=== PATIENT | female | born 1930 | race Two or more races ===

== ENCOUNTER 2019-07-13 11:39 | Inpatient (IN) | payer OTHER ==
[~2019-07-13] VITALS: Ht 152.4 cm; Wt 40.0 kg
[2019-07-13] VITALS (32 sets, daily range): BP systolic 74–122; BP diastolic 39–67
[2019-07-13] MEDS ORDERED: SUCCINYLCHOLINE CHLORIDE 20 MG/ML 10ML VIAL IV ONE (11:43)
[2019-07-13] MEDS ORDERED: ETOMIDATE (2MG/ML) 20ML VIAL IV ONE (11:43)
[2019-07-13] MEDS ORDERED: MIDAZOLAM DRIP 50 mg/50mL 50 ML IV ONE (11:45)
[2019-07-13] MEDS ORDERED: NOREPINEPHRINE 8 MG/250ML KIT 250 ML IV ONE (11:56)
[2019-07-13] MEDS ORDERED: SODIUM CHLORIDE 0.9% 500 ML IVB ONE (12:07)
[2019-07-13 12:50] LABS: Basophils # (auto) 0.1 uL; Basophils % (auto) 0.9 % (0.0-2.0); Eosinophils # (auto) 0.1 uL; Eosinophils % (auto) 1.7 % (0.0-7.0); Hematocrit 32.5 % (36.0-46.0); Hemoglobin 10.6 g/dL (12.2-16.2); Lymphocytes % (auto) 50.3 % (10.0-50.0); Mean Corpuscular Hgb Conc. 32.8 g/dL (32.0-36.0); Mean Corpuscular Volume 97.6 fL (80.0-100.0); Monocytes # (auto) 0.5 uL; Monocytes % (auto) 7.8 % (0.0-12.0); Neutrophils # (auto) 2.4 uL; Neutrophils % (auto) 39.3 % (37.0-80.0); Nucleated Red Blood Cells % 0.1 %; Platelet Count (auto) 144 10^3/uL (140-450); Red Blood Cells 3.32 10^6/uL (4.0-5.20); Red Cell Distribution Width 13.5 % (11.8-14.3); White Blood Cell 6.1 10^3/uL (4.4-10.8)
[2019-07-13 13:04] LABS: INR 1.09 (0.9-1.15); Partial Thromboplastin Time 24.8 sec (23.64-32.05)
[2019-07-13 13:18] LABS: Albumin 2.8 g/dL (3.4-5.0); Calcium 7.8 mg/dL (8.5-10.1); Potassium 3.4 mmol/L (3.5-5.1); Salicylate < 1.7 mg/dL (2.8-20.0)
[2019-07-13 13:21] LABS: BUN/Creatinine Ratio 11.8; Bilirubin, Total 0.5 mg/dL (0.2-1.0); Total Protein 5.8 g/dL (6.4-8.2)
[2019-07-13 13:26] LABS: Blood Alcohol < 3.0 mg/dL (0-5); Magnesium 1.7 mg/dL (1.6-2.6)
--- NOTE | 2019-07-13 13:45 | NUR ---
Respiratory note: INCREASED RR TO 18 PER MODEL AND MOLD MAKER PLASTER R. SALBINO.
--- NOTE | 2019-07-13 14:22 | NUR ---
Respiratory note: PT TRANSPORTED TO CT WITH AMBUBAG AND HOOKED UP TO CT VENT. PT BAGGED TO ER ROOM [address] AND PLACED BACK ON DOCTORS ORDERED SETTINGS. WILL CONTINUE TO MONITOR.
[2019-07-13] MEDS ORDERED: SODIUM CHLORIDE 0.9% 1,000 ML IV ONE (14:30)
[2019-07-13] MEDS ORDERED: NITROGLYCERIN 0.4 MG SL TAB SL PRN (15:45)
[2019-07-13] MEDS ORDERED: ONDANSETRON HCL 4 MG/2 ML VIAL IV PRN (15:45)
[2019-07-13] MEDS ORDERED: MORPHINE SULF INJ 2 MG/ML SYRINGE 1ML IV PRN (15:45)
[2019-07-13 15:51] LABS: Urine Bacteria NONE SEEN /hpf (None Seen); Urine Blood TRACE /uL (Negative); Urine Hyaline Cast FEW /lpf (0 - 2); Urine Mucus FEW (None Seen); Urine Specific Gravity 1.014 (1.001-1.035); Urine WBC 1 /hpf (0 - 5)
[2019-07-13 15:59] LABS: Alcohol, Urine < 3.0 mg/dL (0-5); Amphetamine Screen, Urine NEGATIVE (NEGATIVE); Barbiturate Scree,Urine NEGATIVE (NEGATIVE); Benzodiazephine Screen, Urine NEGATIVE (NEGATIVE); Cannabinoid Screen, Urine NEGATIVE (NEGATIVE); Cocaine Screen, Urine NEGATIVE (NEGATIVE); Opiate Scree,Urine NEGATIVE (NEGATIVE); Phencyclidine Screen, Urine NEGATIVE (NEGATIVE)
[2019-07-13] MEDS: MIDAZOLAM DRIP 50 mg/50mL 50 ML IV SCH (16:28)
[2019-07-13] MEDS: SODIUM CHLORIDE 0.9% 1,000 ML IV SCH (16:30)
[2019-07-13] MEDS: NOREPINEPHRINE 8 MG/250ML KIT 250 ML IV SCH ×2 (16:31→22:00)
[2019-07-13 17:10] LABS: Lactic Acid w/Reflex 2.1 mmol/L (0.4-2.0)
--- NOTE | 2019-07-13 17:30 | NUR ---
Admit to ICU from ER on vent ALEXANDRO,JAYLAN admitted to ICU via gurney on athletic monitor, intubated and being bagged by Respiratory Therapist. Patient transferred to bed, connected to mechanical ventilator by therapist, ROSALINE at bedside. Patient connected to ICU monitoring Sinus rhythm 70's with PVC's, weighed by [facility], oriented to Beth Mcgregor primary RN, unit, ventilator and sedation. Patient tolerating ventilation at this time. Physical assessment performed. Berumen catheter preset, patent, and secure below bladder. Flexi-seal intact and patent. Vitals stable. See skin/wound assessment. Bed locked in lowest position, alarms in place. Will continue to monitor.
--- NOTE | 2019-07-13 17:50 | NUR ---
WARMING MEASURES Unable to obtain temperature oral or axillary. Placed rectal temp, 90.7. Luis hugger placed, warm blankets and heating light on. Will continue to monitor rewarming period.
--- NOTE | 2019-07-13 18:10 | NUR ---
URINE Urine sample sent to lab.
[2019-07-13] MEDS: IPRATROPIUM BROM 0.5 MG/2.5ML INH SOL NEB SCH ×2 (18:20→18:49)
[2019-07-13] MEDS: ALBUTEROL SULF 2.5 MG/0.5ML(0.5%) NEB SOLN NEB SCH ×2 (18:20→18:48)
--- NOTE | 2019-07-13 18:30 | NUR ---
FAMILY AT BEDSIDE Patient daughters at bedside. Family updated on plan of care. All questions and concerns addressed.
[2019-07-13] MEDS: BUDESONIDE (INHALATION) 0.5 MG/2 ML NEB NEB SCH (18:49)
--- NOTE | 2019-07-13 19:00 | NUR ---
opening note ASSUMED CARE OF PATIENT AT THIS TIME. REPORT RECEIVED FROM DAY SHIFT RN. POC REVIEWED. HEAD TO TOE ASSESSMENT COMPLETE, SEE INTERVENTION SPREADSHEET FOR COMPLETE DETAILS. RECEIVED PT INTUBATED. NO SEDATION AT THIS TIME. RECEIVED PT AT 92 DEGREES RECTAL TEMP WITH SATURNINO HUGGER WARMING IN PLACE. RECEIVED PT ON 13 MCG OF LEVO. NS AT 100. IV SITES BENIGN. ALEJANDRO CATHETER DRAINING TO GRAVITY. OGT CLAMPED. WILL MONITOR PT CAREFULLY. Addendum: 07/14/19 at 0334 by DOC VITAL RN received pt with flexiseal in place. no output noted
[2019-07-13] MEDS ORDERED: CITA10TA59 PO (19:02)
--- NOTE | 2019-07-13 19:04 | NUR ---
REPORT Report given to Rj SAINI, care endorsed.
[2019-07-13 20:25] LABS: Urine Bacteria NONE SEEN /hpf (None Seen); Urine Blood Negative /uL (Negative); Urine Hyaline Cast FEW /lpf (0 - 2); Urine Mucus FEW (None Seen); Urine WBC 1 /hpf (0 - 5)
--- NOTE | 2019-07-13 21:02 | NUR ---
pt not on sedation at this time Addendum: 07/13/19 at 2102 by DOC VITAL RN Amended: Links added.
[2019-07-13] MEDS: FAMOTIDINE (10MG/ML) 2ML VL IV SCH (21:37)
--- NOTE | 2019-07-13 21:51 | NUR ---
GRETCHEN TO NUNU.
--- NOTE | 2019-07-13 22:47 | NUR ---
core temp, 98.6. Luis hugger warming on standby at this time.
--- NOTE | 2019-07-13 23:09 | NUR ---
v-tach pt had run of v-tach. Labs sent to check electrolytes. Strip printed and placed in pt chart.
[2019-07-13] MEDS ORDERED: MAGNESIUM SULFATE 1GM/100ML 100 ML IV ONE (23:42)
[2019-07-13 23:51] LABS: BUN/Creatinine Ratio 13.9; Calcium 7.7 mg/dL (8.5-10.1); Magnesium 1.6 mg/dL (1.6-2.6); Potassium 3.5 mmol/L (3.5-5.1)
--- NOTE | 2019-07-13 23:54 | NUR ---
Pt having frequent episodes of V-tach, episodes of torsades. Hospitalist paged at this time.
[2019-07-14] VITALS (69 sets, daily range): BP systolic 80–140; BP diastolic 40–67
--- NOTE | 2019-07-14 | NUR ---
ekg done, electrolyte panel complete.
[2019-07-14] MEDS ORDERED: MAGNESIUM SULFATE 1GM/100ML 100 ML IV ONE (00:09)
--- NOTE | 2019-07-14 00:12 | NUR ---
Hospitalist paged again at this time.
[2019-07-14] MEDS: IPRATROPIUM BROM 0.5 MG/2.5ML INH SOL NEB SCH ×4 (00:14→18:47)
[2019-07-14] MEDS: ALBUTEROL SULF 2.5 MG/0.5ML(0.5%) NEB SOLN NEB SCH ×4 (00:15→18:47)
[2019-07-14] MEDS ORDERED: AMIODARONE HCL (50 MG/ ML) 3 ML VIAL IV ONE (00:19)
[2019-07-14] MEDS ORDERED: AMIODARONE HCL 900 MG IV ONE (00:20)
[2019-07-14] MEDS ORDERED: NOREPINEPHRINE 8 MG/250ML KIT 250 ML IV ONE (00:21)
--- NOTE | 2019-07-14 00:26 | NUR ---
Hospitalist returned page, orders received fro 2 gm Mag and Amio protocol. Will carry out order.
[2019-07-14] MEDS ORDERED: AMIODARONE HCL 900 MG in DEXTROSE 500 ML IV SCH (01:00)
[2019-07-14] MEDS ORDERED: AMIODARONE HCL 150 MG in D5W 5% 100 ML IV ONE (01:00)
[2019-07-14] MEDS: MAGNESIUM SULFATE 1GM/100ML 100 ML IV SCH ×4 (01:00→14:13)
--- NOTE | 2019-07-14 01:39 | NUR ---
Amio bolus given, 33.33 mls dose withheld at this time. Pt in Sinus rhythm with bradycardia 49-50.
[2019-07-14] MEDS: SODIUM CHLORIDE 0.9% 1,000 ML IV SCH ×2 (02:30→16:07)
[2019-07-14 04:43] LABS: Basophils # (auto) 0 uL; Basophils % (auto) 0.3 % (0.0-2.0); Eosinophils # (auto) 0 uL; Eosinophils % (auto) 0.5 % (0.0-7.0); Hematocrit 32.1 % (36.0-46.0); Lymphocytes # (auto) 1.7 uL; Lymphocytes % (auto) 17.5 % (10.0-50.0); Mean Corpuscular Hemoglobin 32.4 pg (28.0-32.0); Mean Corpuscular Hgb Conc. 34.4 g/dL (32.0-36.0); Mean Corpuscular Volume 94.1 fL (80.0-100.0); Monocytes # (auto) 0.9 uL; Neutrophils # (auto) 7.2 uL; Neutrophils % (auto) 72.7 % (37.0-80.0); Platelet Count (auto) 162 10^3/uL (140-450); Red Blood Cells 3.41 10^6/uL (4.0-5.20); Red Cell Distribution Width 13.2 % (11.8-14.3); White Blood Cell 9.9 10^3/uL (4.4-10.8)
[2019-07-14 04:51] LABS: Calcium 7.9 mg/dL (8.5-10.1); Potassium 3.1 mmol/L (3.5-5.1)
[2019-07-14 04:53] LABS: BUN/Creatinine Ratio 11.4
--- NOTE | 2019-07-14 06:41 | NUR ---
rhythm change approx 0500 pt began dipping hr to 30's. BP remained stable on 15 mcg of levo. Pt externally paced at this time. Hospitalist page.. Orders received to start pt on dopamine gtt. Addendum: 07/14/19 at 0647 by DOC VITAL RN dopamine for hr to keep >60
[2019-07-14] MEDS: DOPamine 1600MCG/ML D5W 250 ML IV SCH (06:43)
[2019-07-14] MEDS ORDERED: DOPamine 1600MCG/ML D5W 250 ML IV ONE (06:52)
--- NOTE | 2019-07-14 07:06 | NUR ---
Order received from hospitalist to give 20 meq k iv. Will carry out order
[2019-07-14] MEDS ORDERED: POTASSIUM CHL 20MEQ/100ML 100 ML IV ONE ×2 (07:15→11:45)
[2019-07-14] MEDS: BUDESONIDE (INHALATION) 0.5 MG/2 ML NEB NEB SCH ×2 (07:35→18:47)
[2019-07-14] MEDS: FAMOTIDINE (10MG/ML) 2ML VL IV SCH (10:02)
[2019-07-14] MEDS: ENOXAPARIN SOD 30 MG/0.3 ML SYRINGE SC SCH (10:03)
[2019-07-14] MEDS: AMIODARONE HCL 900 MG in DEXTROSE 500 ML IV SCH (11:12)
--- NOTE | 2019-07-14 11:43 | NUR ---
DR ELIZALDE AT BEDSIDE, DR EXAMINED PATIENT AND GAVE NEW ORDERS. DR AWARE PROLONGED QTI, BRADYCARDIA, LEVOPHED/DOPAMINE DRIPS. SPOKE WITH DTR.
[2019-07-14] MEDS ORDERED: ISOPROTERENOL HCL INJECTION 1 MG in D5W 5% 250 ML IV SCH (12:19)
--- NOTE | 2019-07-14 12:25 | NUR ---
DR MOTA AT BEDSIDE, EXAMINED PATIENT AND SPOKE WITH FAMILY. NEW ORDERS RECEIVED FOR ISUPREL DRIP 2-5 MCGM/MIN TO KEEP HR 80-100. DR STATED TO START ISUPREL RATHER THAN GOING UP ON DOPAMINE DRIP. DR STATED TO HAVE ECHO COMPLETED SOON AND SUPERVISOR STRIPPING AWARE STATED AFTER LUNCH ECHO WILL BE COMPLETED. DR AWARE OF PROLONGED QTI AND TORSADES ON WEB ANALYTICS DEVELOPER. DR GAVE ORDER FOR 2 GM MAGNESIUM IV RIDER AND TO CHECK MAG LEVEL LATER AFTER. AWARE POTASSIUM REPLACED WITH 20 MEQ IV AND RN WILL GIVE ANOTHER 20 MEQ IV NOW PER DR ELIZALDE ORDER.
--- NOTE | 2019-07-14 12:37 | NUR ---
Nutrition Consult/Assessment Notes please see attached link for complete assessment Est. Needs BW [id number] kcal (25-30 kcal/kgBW), 49-58 gms pro (1.0-1.2 gms/kgBW). Will continue to monitor pertinent labs and reassess nutrient need prn Addendum: 07/14/19 at [address] Amended: Links added.
[2019-07-14] MEDS: MIDAZOLAM DRIP 50 mg/50mL 50 ML IV SCH (12:38)
--- NOTE | 2019-07-14 14:00 | NUR ---
DOPAMINE DRIP INCREASED TO 3 MCG/KG/MIN TO KEEP HR 80-[address] BANKO ORDER DUE TO NO ISUPREL DRIP AVAILABLE
--- NOTE | 2019-07-14 14:20 | NUR ---
DECREASED DOPAMINE BY 1 MCG/KG/MIN DUE HR 110-112 WITH FREQUENT PVCS, DOPAMINE CURRENTLY AT 2 MCG/KG/MIN
--- NOTE | 2019-07-14 14:50 | NUR ---
WOUND CARE NOTE: Wound care consult received from nursing. Patient is a 88 yo female admitted for acute respiratory failure. Patient's only charted medical history includes depression. Patient is currently intubated and sedated. Discussed with bedside RNBenson. Patient has [id number] specialty bed ordered and is currently on regular ICU bed. Patient is too unstable at this time to transfer to specialty bed or turn for skin assessment. Per bedside Benson SAINI. Skin is intact. Sacrum is pink, blanching and intact. Last Alfonso score is 12. Wound care team to follow while Alfonso is <18 and intubated.
[2019-07-14] MEDS ORDERED: OXYB10TA14 PO (15:55)
[2019-07-14] MEDS ORDERED: ATOR20TA50 PO (15:55)
[2019-07-14] MEDS ORDERED: GABA300C10 PO (15:55)
[2019-07-14] MEDS ORDERED: MELA3TAB27 PO (15:55)
[2019-07-14] MEDS ORDERED: OME20T PO (15:55)
[2019-07-14] MEDS ORDERED: ATEN-60 PO (15:55)
[2019-07-14] MEDS ORDERED: GABA100C9 PO (15:55)
[2019-07-14] MEDS ORDERED: [UNRECOGNIZED DRUG - CODE] PO (15:55)
[2019-07-14] MEDS ORDERED: ALEN1TAB32 PO (15:55)
[2019-07-14] MEDS: NOREPINEPHRINE 8 MG/250ML KIT 250 ML IV SCH (16:08)
--- NOTE | 2019-07-14 18:00 | NUR ---
DOPAMINE AT 5 MCG/KG/MIN TO MAINTAIN HR 80-100 AND MAP ABOVE 90
--- NOTE | 2019-07-14 18:45 | NUR ---
SHANTANU PEARSON LABOR ARBITRATOR AT BEDSIDE PLACED ARTERIAL LINE TO RIGHT FEMORAL ARTERY AFTER CONSENT OBTAINED FROM DTTiffanie TIAN.
--- NOTE | 2019-07-14 19:00 | NUR ---
DR BOONE AT BEDSIDE NEW ORDER RECEIVED. AWARE OF INCREASED TONGUE SWELLING SINCE BEGINNING OF SHIFT
--- NOTE | 2019-07-14 19:00 | NUR ---
OPENING NOTE ASSUMED CARE OF PATIENT AT THIS TIME. REPORT RECEIVED FROM DAY SHIFT RN. POC REVIEWED. HEAD TO TOE ASSESSMENT COMPLETE, SEE INTERVENTION SPREADSHEET FOR COMPLETE DETAILS. RECEIVED PT ON VENTILATOR, NO SEDATION AT THIS TIME. RECEIVED PT ON 17 MCG OF LEVO, 6 MCG OF DOPAMINE. RECEIVED PT WITH ARTERIAL BP MONITORING AND RECTAL TEMP MONITORING. IV SITES BENIGN. RECEIVED PT WITH TONGUE SWELLING. VSS. ALEJANDRO CATHETER DRAINING TO GRAVITY. BED LOCKED AND IN LOWEST POSITION, SAFETY PRECAUTIONS IN PLACE. WILL MONITOR PT CAREFULLY.
[2019-07-14 19:15] LABS: Albumin 2.8 g/dL (3.4-5.0); BUN/Creatinine Ratio 9.1; Calcium 7.9 mg/dL (8.5-10.1); Potassium 4.1 mmol/L (3.5-5.1)
[2019-07-14 19:18] LABS: Bilirubin, Total 0.6 mg/dL (0.2-1.0); Total Protein 5.9 g/dL (6.4-8.2)
--- NOTE | 2019-07-14 21:05 | NUR ---
MARIPOSA FROM POISON CONTROL CALLED RECOMMEND CALCIUM REPLACEMENT, AND EPINEPHRINE OVER DOPAMINE. CONTINUE WITH SUPPORTIVE CARE. DO 12 LEAD EKG AND REPORT ANY ISSUES TO POISON CONTROL AT [phone]
--- NOTE | 2019-07-14 21:27 | NUR ---
PT NOT ON SEDATION AT THIS TIME Addendum: 07/14/19 at 2127 by DOC VITAL RN Amended: Links added.
[2019-07-14] MEDS: methylPREDNISolone SOD SUCC 40 MG/ML VL IV SCH (21:58)
[2019-07-15] VITALS (108 sets, daily range): BP systolic 88–151; BP diastolic 47–83
[2019-07-15] MEDS: ALBUTEROL SULF 2.5 MG/0.5ML(0.5%) NEB SOLN NEB SCH ×4 (00:42→18:35)
[2019-07-15] MEDS: IPRATROPIUM BROM 0.5 MG/2.5ML INH SOL NEB SCH ×4 (00:42→18:35)
[2019-07-15] MEDS: NOREPINEPHRINE 8 MG/250ML KIT 250 ML IV SCH (01:12)
--- NOTE | 2019-07-15 04:33 | NUR ---
EKG PER POISON CONTROL RECOMMENDATION COMPLETE PLACED IN PATIENT CHART.
--- NOTE | 2019-07-15 04:33 | NUR ---
FLEXISEAL REMOVED AT THIS TIME D/T NO OUTPUT OBSERVED. PT TOLERATED WELL.
[2019-07-15 04:35] LABS: Hemoglobin 11.6 g/dL (12.2-16.2); Mean Corpuscular Hemoglobin 31.6 pg (28.0-32.0); Mean Corpuscular Hgb Conc. 33.3 g/dL (32.0-36.0); Mean Corpuscular Volume 95.1 fL (80.0-100.0); Platelet Count (auto) 169 10^3/uL (140-450); Red Blood Cells 3.68 10^6/uL (4.0-5.20); Red Cell Distribution Width 13.4 % (11.8-14.3); White Blood Cell 14.6 10^3/uL (4.4-10.8)
[2019-07-15 04:40] LABS: Basophils % (manual) 0 (0.0-2.0); Blast Cells 0; Eosinophils % (manual) 0 (0-7); Lymphocytes % (manual) 0 (10.0-50.0); Metamyelocytes % 0; Monocytes % (manual) 0 (0-12); Myelocytes % 0; Promyelocytes % 0; Reactive Lymphocytes 0
[2019-07-15 04:47] LABS: BUN/Creatinine Ratio 9.3; Calcium 7.9 mg/dL (8.5-10.1); Magnesium 2.6 mg/dL (1.6-2.6); Potassium 3.9 mmol/L (3.5-5.1)
--- NOTE | 2019-07-15 05:16 | NUR ---
PT TRANSFERRED TO SPECIALTY BED WITH NO INCIDENT. PT TOLERATED WELL.
[2019-07-15] MEDS: methylPREDNISolone SOD SUCC 40 MG/ML VL IV SCH ×3 (05:52→21:48)
[2019-07-15] MEDS: SODIUM CHLORIDE 0.9% 1,000 ML IV SCH ×3 (05:52→20:00)
[2019-07-15] MEDS: BUDESONIDE (INHALATION) 0.5 MG/2 ML NEB NEB SCH ×2 (06:11→18:35)
[2019-07-15 06:52] LABS: Band Neutrophils % (manual) 4
[2019-07-15] MEDS: AMIODARONE HCL 900 MG in DEXTROSE 500 ML IV SCH (07:00)
--- NOTE | 2019-07-15 07:15 | NUR ---
SHIFT OPENING NOTE REPORT RECEIVED FROM PROJECT MANAGEMENT SPECIALIST NURSE. PT INTUBATED, RESPIRATIONS EVEN AND UNLABORED. NO SIGNS OF ACUTE DISTRESS. BED IN LOWEST POSITION. WILL CONTINUE TO MONITOR.
--- NOTE | 2019-07-15 08:05 | NUR ---
TEMPERATURE ON ASSESSMENT, PT TEMP 96.8. TURNED ON OVERHEAD HEAT LAMP AND APPLIED BEAR HUGGER. WILL CONTINUE TO MONITOR.
[2019-07-15] MEDS: DOPamine 1600MCG/ML D5W 250 ML IV SCH ×2 (08:38→21:47)
--- NOTE | 2019-07-15 09:15 | NUR ---
FAMILY AT BEDSIDE PTS TWO DAUGHTERS AT BEDSIDE. UPDATED FAMILY ON PT CONDITION AND PLAN OF CARE. ALL QUESTIONS AND CONCERNS ADDRESSED.
--- NOTE | 2019-07-15 10:12 | NUR ---
MD PAGED DR BOONE UPDATED VIA TELEPHONE WITH ABG RESULTS AND PATIENT STATUS. NO NEW ORDERS AT THIS TIME. PER MD AWAITING NEURO IMPROVEMENT BEFORE EXTUBATION.
[2019-07-15] MEDS: FAMOTIDINE (10MG/ML) 2ML VL IV SCH (10:31)
[2019-07-15] MEDS: ENOXAPARIN SOD 30 MG/0.3 ML SYRINGE SC SCH (10:32)
--- NOTE | 2019-07-15 10:52 | NUR ---
AT BEDSIDE DR. RAY AT BEDSIDE TO ASSESS PATIENT AND DISCUSS PLAN OF CARE WITH FAMILY. ALL ORDERS NOTED IN CHART.
--- NOTE | 2019-07-15 11:47 | NUR ---
POISON CONTROL CALLED POISON CONTROL UPDATED ON PATIENT STATUS. NO NEW RECOMMENDATIONS GIVEN AT THIS TIME.
[2019-07-15] MEDS: MIDAZOLAM DRIP 50 mg/50mL 50 ML IV SCH (12:38)
--- NOTE | 2019-07-15 13:51 | NUR ---
assessment Patient is a 88 year old female who is on a vent. I called and left a message for patients daughter Pratima yesterday and she returned my call this morning and left me a message. I tried to call Pratima back with no answer. I have left another message for Pratima to return my call. Waiting senior controller back now. Addendum: 07/15/19 at 1353 by Pratibha LONG Amended: Links added.
--- NOTE | 2019-07-15 14:00 | NUR ---
TEMPERATURE PT TEMPERATURE NOW AT 98.6. TURNED OFF BEAR HUGGER AND OVERHEAD HEAT LAMP. WILL CONTINUE TO MONITOR.
[2019-07-15] MEDS: Jevity 1.2 Cal/Fiber 1 Liter GT SCH (17:20)
--- NOTE | 2019-07-15 17:20 | NUR ---
TUBE FEEDINGS TUBE FEEDING INITIATED. POSITIVE OG TUBE PLACEMENT. JEVITY 1.2 RUNNING AT 10 ML/HOUR.
--- NOTE | 2019-07-15 18:27 | NUR ---
RT NOTE RECEIVED PT INTUBATED AND ON VENT V4 ON STATED SETTINGS. VENT IS PLUGGED TO RED OUTLET. ALARMS ARE ON AND AUDIBLE AT NURSES STATION. AMBU BAG AT BEDSIDE AND CONNECTED TO O2. 8.0 ETT IS SECURED WITH ANCHORFAST AT 22 CM TO THE ORAL CENTER. BILATERAL BS ARE CLEAR/DIM. HHN GIVEN INLINE WITH 2.5 MG ALBUTEROL, 0.5 MG ATROVENT AND 0.5 MG PULMICORT WITHOUT ADVERSE REACTION NOTED. PT WAS SUCTIONED FOR NO RETURN. CONT ORDERED. POX 100% Addendum: 07/15/19 at 2004 by Noemi Loco RT Amended: Links added.
--- NOTE | 2019-07-15 19:10 | NUR ---
AT BEDSIDE DR. BOONE AT BEDSIDE TO ASSESS PATIENT. UPDATED MD ON PT CONDITION. NO NEW ORDERS RECEIVED AT THIS TIME.
--- NOTE | 2019-07-15 20:00 | NUR ---
OPEN ASSUMED CARE OF FEMALE PT ORALLY INTUBATED. PT NOT SEDATED. NON RESPONSIVE. PUPILS 3MM AMBER AND SLUGGISH. COUGH AND GAG ABSENT. PT DOES NOT MOVE EXTREMITIES. SR ON STRATEGY EXECUTION CONSULTANT WITH PVC'S. DOPAMINE GTT INFUSING AT 9.5 MCG/KG/MIN INTO L. SUBCLAVIAN TLC. OGT IN PLACE WITH JEVITY FEEDING INFUSING AT 10 ML/HR. 10 ML RESIDUAL ASPIRATED/RETURNED. PLACEMENT VERIFIED. 20 G IV TO R. F/A B&P. R. FEMORAL CARLITA IN PLACE WITH GOOD WAVEFORM OBSERVED. ALEJANDRO TO GRAVITY DRAINING CLEAR YELLOW URINE. AMBER SCD'S IN PLACE. OPTIFOAM GENTLE SACRAL DRESSING IN PLACE PREVENTATIVE. PT ON SPECIALTY AIR MATTRESS FOR LOW ALEXANDRA SCORE. NO INDICATION OF PAIN OBSERVED. PT REPOSITIONED WITH PILLOWS USED TO OFFLOAD BONY PROMINENCES. AMBER HEELS OFFLOADED WITH PILLOWS. PT IN FULL VIEW OF RN STATION. HOB ELEVATED 40 DEGREES. BED IN LOWEST LOCKED POSITION. WILL CONTINUE TO MONITOR.
--- NOTE | 2019-07-15 20:07 | NUR ---
RT NOTE ROUTINE VENT CHECK DONE. PT INTUBATED AND ON VENT V4 ON STATED SETTINGS. VENT IS PLUGGED TO RED OUTLET. ALARMS ARE ON AND AUDIBLE AT NURSES STATION. AMBU BAG AT BEDSIDE AND CONNECTED TO O2. 8.0 ETT IS SECURED WITH ANCHORFAST AT 22 CM TO THE ORAL CENTER. PT HAS A NOTED RIGHT FEMORAL ART LINE. HME CHANGED WITHOUT INCIDENT. CONT ORDERED. POX 100% Addendum: 07/15/19 at 2043 by Noemi Loco RT Amended: Links added.
--- NOTE | 2019-07-15 20:15 | NUR ---
FAMILY VISIT PT DAUGHTER TO UNIT FOR VISIT. UPDATED REGARDING PT CONDITION AND PLAN OF CARE.
--- NOTE | 2019-07-15 22:02 | NUR ---
RT NOTE ROUTINE VENT CHECK DONE. PT INTUBATED AND ON VENT V4 ON STATED SETTINGS. VENT IS PLUGGED TO RED OUTLET. ALARMS ARE ON AND AUDIBLE AT NURSES STATION. AMBU BAG AT BEDSIDE AND CONNECTED TO O2. 8.0 ETT IS SECURED WITH ANCHORFAST AT 22 CM TO THE ORAL RIGHT. PT HAS A NOTED RIGHT FEMORAL ART LINE. PT WAS SUCTIONED FOR SMALL RETURN. CONT ORDERED. POX 100% Addendum: 07/15/19 at 2248 by Noemi Loco RT Amended: Links added.
[2019-07-16] VITALS (105 sets, daily range): BP systolic 129–177; BP diastolic 54–93
--- NOTE | 2019-07-16 00:17 | NUR ---
RT NOTE ROUTINE VENT CHECK DONE. PT INTUBATED AND ON VENT V4 ON STATED SETTINGS. VENT IS PLUGGED TO RED OUTLET. ALARMS ARE ON AND AUDIBLE AT NURSES STATION. AMBU BAG AT BEDSIDE AND CONNECTED TO O2. 8.0 ETT IS SECURED WITH ANCHORFAST AT 22 CM TO THE ORAL RIGHT. PT HAS A NOTED RIGHT FEMORAL ART LINE. PT WAS SUCTIONED FOR SMALL RETURN. HHN GIVEN INLINE WITH 2.5 MG ALBUTEROL AND 0.5 MG ATROVENT WITHOUT ADVERSE REACTION NOTED. CONT ORDERED. POX 100% Addendum: 07/16/19 at 0045 by Noemi Loco RT Amended: Links added.
[2019-07-16] MEDS: IPRATROPIUM BROM 0.5 MG/2.5ML INH SOL NEB SCH ×4 (00:21→18:40)
[2019-07-16] MEDS: ALBUTEROL SULF 2.5 MG/0.5ML(0.5%) NEB SOLN NEB SCH ×4 (00:21→18:41)
[2019-07-16] MEDS: SODIUM CHLORIDE 0.9% 1,000 ML IV SCH ×3 (01:43→23:45)
--- NOTE | 2019-07-16 02:15 | NUR ---
RT NOTE ROUTINE VENT CHECK DONE. PT INTUBATED AND ON VENT V4 ON STATED SETTINGS. VENT IS PLUGGED TO RED OUTLET. ALARMS ARE ON AND AUDIBLE AT NURSES STATION. AMBU BAG AT BEDSIDE AND CONNECTED TO O2. 8.0 ETT IS SECURED WITH ANCHORFAST AT 22 CM TO THE ORAL RIGHT. PT HAS A NOTED RIGHT FEMORAL ART LINE. CONT ORDERED. POX 100% Addendum: 07/16/19 at 0224 by Noemi Loco RT Amended: Links added.
--- NOTE | 2019-07-16 02:55 | NUR ---
NEURO PT PREVIOUSLY WITH NO COUGH GAG SPONTANEOUSLY COUGHING DURING BATHING. PT WITHDRAWS FROM WASHING.
--- NOTE | 2019-07-16 03:00 | NUR ---
Patient bathe/linen change Patient given complete bath. Skin integrity assessed for any changes. Linens changed. Patient repositioned for comfort. HAIR WASHED.
[2019-07-16 03:55] LABS: Basophils # (auto) 0 uL; Eosinophils # (auto) 0 uL; Hematocrit 35.7 % (36.0-46.0); Hemoglobin 12.2 g/dL (12.2-16.2); Lymphocytes # (auto) 0.4 uL; Lymphocytes % (auto) 2.6 % (10.0-50.0); Mean Corpuscular Hemoglobin 32.1 pg (28.0-32.0); Mean Corpuscular Hgb Conc. 34.1 g/dL (32.0-36.0); Mean Corpuscular Volume 94.2 fL (80.0-100.0); Monocytes # (auto) 0.3 uL; Monocytes % (auto) 2.1 % (0.0-12.0); Neutrophils # (auto) 14.9 uL; Neutrophils % (auto) 95.3 % (37.0-80.0); Platelet Count (auto) 160 10^3/uL (140-450); Red Blood Cells 3.79 10^6/uL (4.0-5.20); Red Cell Distribution Width 13.4 % (11.8-14.3); White Blood Cell 15.7 10^3/uL (4.4-10.8)
[2019-07-16 04:20] LABS: Albumin 2.7 g/dL (3.4-5.0); Potassium 3.9 mmol/L (3.5-5.1)
--- NOTE | 2019-07-16 04:21 | NUR ---
RT NOTE ROUTINE VENT CHECK DONE. PT INTUBATED AND ON VENT V4 ON STATED SETTINGS. VENT IS PLUGGED TO RED OUTLET. ALARMS ARE ON AND AUDIBLE AT NURSES STATION. AMBU BAG AT BEDSIDE AND CONNECTED TO O2. 8.0 ETT IS SECURED WITH ANCHORFAST AT 22 CM TO THE ORAL RIGHT. PT HAS A NOTED RIGHT FEMORAL ART LINE. HME, T-PIECE AND INLINE SUCTION CHANGED WITHOUT INCIDENT. CONT ORDERED. POX 100% Addendum: 07/16/19 at 0439 by Noemi Loco RT Amended: Links added.
[2019-07-16 04:25] LABS: BUN/Creatinine Ratio 15.6; Bilirubin, Total 0.4 mg/dL (0.2-1.0); Total Protein 6.2 g/dL (6.4-8.2)
[2019-07-16] MEDS: BUDESONIDE (INHALATION) 0.5 MG/2 ML NEB NEB SCH ×2 (05:40→18:41)
[2019-07-16] MEDS: methylPREDNISolone SOD SUCC 40 MG/ML VL IV SCH ×3 (06:00→21:27)
--- NOTE | 2019-07-16 07:05 | NUR ---
REPORT RECEIVED FROM SUPERVISOR BOARDING NURSE. PATIENT RESTING IN BED INTUBATED NO SEDATIONS SINCE ADMISSION. RESPIRATIONS EVEN AND UNLABORED. ARTERIAL LINE TO RIGHT FEMORAL WITH NO NOTED HEMATOMA OR REDNESS TO SITE. NO SIGNS OF ACUTE DISTRESS NOTED. BED IN LOW POSITION. WILL CONTINUE TO MONITOR.
--- NOTE | 2019-07-16 08:50 | NUR ---
PATIENT TAKEN TO HEAD CT VIA BED CONNECTED TO PORTABLE MONITOR AND PORTABLE VENTILATOR. RESPIRATORY THERAPIST WELL NURSE PRESENT FOR TRANSPORT. VITAL SIGNS STABLE.
--- NOTE | 2019-07-16 09:15 | NUR ---
RT NOTE: PT TAKEN FOR HEAD CT SCAN @ 0900. MOTION PICTURE PHOTOGRAPHER, DATACAP DEVELOPER AND ADMINISTRATIVE LIBRARY ASSISTANT BEDSIDE. PT PLACED ONTO TRANSPORT VENT FOR DURATION OF TRANSPORT AND SCAN. CT DONE W/O INCIDENT. ONCE BACK IN ICU, PT PLACED BACK ONTO BEDSIDE VENT. WILL CONTINUE TO MONITOR.
--- NOTE | 2019-07-16 09:15 | NUR ---
PATIENT RETURNED TO FROM HEAD CT VIA BED CONNECTED TO BEDSIDE MONITOR. VITAL SIGNS STABLE. WILL CONTINUE TO MONITOR.
[2019-07-16] MEDS: FAMOTIDINE (10MG/ML) 2ML VL IV SCH (09:38)
[2019-07-16] MEDS: ENOXAPARIN SOD 30 MG/0.3 ML SYRINGE SC SCH (09:38)
--- NOTE | 2019-07-16 09:45 | NUR ---
DR BOONE AT BEDSIDE TO ASSESS PATIENT AND DISCUSS PLAN OF CARE. NO NEW ORDERS AT THIS TIME.
--- NOTE | 2019-07-16 11:30 | NUR ---
WOUND SKIN TEAR NOTED TO LEFT UPPER BACK. PHOTO TAKEN AND OPTIFOAM APPLIED TO SITE.
--- NOTE | 2019-07-16 11:35 | NUR ---
DR RAY AT BEDSIDE TO ASSESS PATIENT AND DISCUSS PLAN OF CARE WITH DAUGHTERS. REVIEWED HEAD CT WITH DAUGHTERS. NO NEW ORDERS AT THIS TIME.
--- NOTE | 2019-07-16 12:22 | NUR ---
Nutrition Follow-up Notes Wt.: 46.7 kg Pt continues to be intubated sedated with no family by bedside. per reocrds pt s/p head CT today. pt continues to be NPO Est. Needs BW [id number] kcal (25-30 kcal/kgBW), 49-58 gms pro (1.0-1.2 gms/kgBW). Will continue to monitor pertinent labs and reassess nutrient need prn Labs: GLU 138 H, ALB 2.7 L, CA 8.0 L. Skin: Alfonso scale 11, high risk, skin intact per deputy sheriff generalist/bailiff. GI: Pt has no BM reported per deputy sheriff generalist/bailiff. PES: Impaired swallowing r/t current medical condition aeb pt`s intubated sedated with order of NPO Altered nutrition related lab values r/t current/chronic medical condition aeb elev creat hypocalcemia, hyperglycemia, mod hypoalb Will continue to monitor NPO status, skin status, pertinent labs and weight trend. F/u in 2 to 3 days. Rec.: 1.) advance diet as medically feasible. 2) if pt continues to be NPO consider EN support with Jevity 1.2 @ 45 ml.h per MD approval. 3) continue current plan of care
[2019-07-16] MEDS: MIDAZOLAM DRIP 50 mg/50mL 50 ML IV SCH (12:38)
--- NOTE | 2019-07-16 13:10 | NUR ---
POISON CONTROL CALLED AND UPDATED ON PATIENT STATUS.
--- NOTE | 2019-07-16 14:05 | NUR ---
re-assessment Patient is still on a vent. I have left yet another message for patients daughter Pratima to return my call. I have notified [facility] ICU director to call me if patients family comes to bedside. Waiting consulting marine engineer or visit from family now. Addendum: 07/16/19 at 1407 by Pratibha Scott SS Amended: Links added.
[2019-07-16] MEDS: NOREPINEPHRINE 8 MG/250ML KIT 250 ML IV SCH (15:41)
--- NOTE | 2019-07-16 19:15 | NUR ---
OPENING SHIFT NOTE ASSUMED CARE OF PT INTUBATED AND NOT ON SEDATION. NON RESPONSIVE. PUPILS 3MM AND BRISK. COUGH/GAG HYPOACTIVE. SR ON GAS ANALYST WITH PVC'S, PAC'S LEFT SUBCLAVIAN 3L. OGT IN PLACE WITH JEVITY FEEDING INFUSING AT 45 ML/HR. 15 ML RESIDUAL FROM OGT. PLACEMENT VERIFIED. NS INFUSING AT 100ML/HR. 20 G IV TO RIGHT FOREARM PATENT AND SALINE LOCKED, RIGHT FEMORAL CARLITA IN PLACE WITH GOOD WAVEFORM OBSERVED. ALEJANDRO TO GRAVITY DRAINING CLEAR YELLOW URINE. SCD'S IN PLACE BILATERALLY. OPTIFOAM GENTLE SACRAL DRESSING PLACED PREVENTATIVELY. PT ON SPECIALTY MATTRESS. NO INDICATION OF PAIN OBSERVED. ALL BONY PROMINENCES OFFLOADED WITH PILLOWS. PT IN FULL VIEW OF NURSES STATION. BED IN LOWEST LOCKED POSITION. WILL CONTINUE TO MONITOR. VSS
--- NOTE | 2019-07-16 19:20 | NUR ---
FAMILY AT BEDSIDE DAUGHTERS UPDATED ON PLAN OF CARE AND PATIENT STATUS. ALL QUESTIONS AND CONCERNS ANSWERED AT THIS TIME. FAMILY VERBALIZED UNDERSTANDING.
--- NOTE | 2019-07-16 20:54 | NUR ---
PAGED DR. CARBAJAL REGARDING BP IN 150'S SYSTOLIC. AWAITING RESPONSE.
[2019-07-16] MEDS: Jevity 1.2 Cal/Fiber 1 Liter GT SCH (23:16)
[2019-07-17] VITALS (106 sets, daily range): BP systolic 112–178; BP diastolic 46–95
[2019-07-17] MEDS: ALBUTEROL SULF 2.5 MG/0.5ML(0.5%) NEB SOLN NEB SCH ×4 (00:17→18:09)
[2019-07-17] MEDS: IPRATROPIUM BROM 0.5 MG/2.5ML INH SOL NEB SCH ×4 (00:17→18:09)
--- NOTE | 2019-07-17 05:33 | NUR ---
PAGED DR. CARBAJAL REGARDING BP 160'S SYSTOLIC. AWAITING CALL BACK FOR NEW ORDERS.
[2019-07-17] MEDS: methylPREDNISolone SOD SUCC 40 MG/ML VL IV SCH ×3 (05:59→21:34)
--- NOTE | 2019-07-17 06:10 | NUR ---
call from dr. isbell regarding elevated bp. new orders received.
[2019-07-17] MEDS: hydrALAZINE HCL 20 MG/ML VL IV PRN (06:38)
[2019-07-17] MEDS: DOPamine 1600MCG/ML D5W 250 ML IV SCH (06:43)
[2019-07-17] MEDS: BUDESONIDE (INHALATION) 0.5 MG/2 ML NEB NEB SCH ×2 (07:11→18:09)
--- NOTE | 2019-07-17 07:21 | NUR ---
Respiratory note: RECEIVED PATIENT ON V4 V200 VENT ORALLY INTUBATED WITH AN 8.0 AT 22 SECURED VIA BRANDON AT THE 22CM MARKING AT THE LIP, AND MECHANICALLY VENTILATED WITH THE CHARTED SETTINGS. SPO2 100%, LUNG SOUNDS CLEAR T/O, NO SECRETIONS WHEN SUCTIONED. SKIN IS COLD/DRY TO THE TOUCH AND IS INTACT NEAR BRANDON SITE. THERE IS AN OGT IN PLACE AND SECURED TO THE ETT. THERE IS A LEFT SUBCLAVIAN TRIPLE LUMEN CENTRAL LINE IN PLACE AND PATENT. NON PITTING EDEMA NOTED IN BILATERAL UPPER EXTREMITIES, NO EDEMA NOTED IN LOWER EXTREMITIES. THERE IS A RIGHT FEMORAL A-LINE IN PLACE. LEG SEQUENTIALS ARE ON AND OPERATIONAL. NO NEW AM CXR TO ASSESS. PATIENT IS UNRESPONSIVE TO VERBAL STIMULI BUT DOES SHOW RESPONSE TO TACTILE STIMULI, AND IS SEDATED OFF SEDATION SINCE 07/16. PATIENT IS RESTING COMFORTABLY AND TOLERATING VENT WELL, NO CHANGES MADE. VENT PLUGGED INTO RED OUTLET AND ALL ALARMS ARE SET AND AUDIBLE. WILL CONTINUE TO ASSESS PATIENT WELL VENTILATOR FUNCTION. [employer] RUN INLINE.
[2019-07-17 08:47] LABS: Basophils # (auto) 0 uL; Basophils % (auto) 0.1 % (0.0-2.0); Eosinophils # (auto) 0 uL; Hematocrit 37.7 % (36.0-46.0); Hemoglobin 12.7 g/dL (12.2-16.2); Lymphocytes # (auto) 0.3 uL; Mean Corpuscular Hemoglobin 31.5 pg (28.0-32.0); Mean Corpuscular Hgb Conc. 33.7 g/dL (32.0-36.0); Mean Corpuscular Volume 93.4 fL (80.0-100.0); Monocytes # (auto) 0.5 uL; Neutrophils # (auto) 15.3 uL; Neutrophils % (auto) 94.9 % (37.0-80.0); Platelet Count (auto) 156 10^3/uL (140-450); Red Blood Cells 4.03 10^6/uL (4.0-5.20); Red Cell Distribution Width 13.8 % (11.8-14.3); White Blood Cell 16.1 10^3/uL (4.4-10.8)
[2019-07-17] MEDS: AMIODARONE HCL 900 MG in DEXTROSE 500 ML IV SCH ×2 (08:47→09:07)
--- NOTE | 2019-07-17 08:49 | NUR ---
TWO DAUGHTERS AT BEDSIDE
[2019-07-17 09:03] LABS: Albumin 2.7 g/dL (3.4-5.0); Calcium 8.4 mg/dL (8.5-10.1); Magnesium 1.6 mg/dL (1.6-2.6)
[2019-07-17 09:06] LABS: BUN/Creatinine Ratio 25.7; Bilirubin, Total 0.3 mg/dL (0.2-1.0); Total Protein 6.1 g/dL (6.4-8.2)
--- NOTE | 2019-07-17 09:13 | NUR ---
PAGED DR MOTA REGARDING POTASSIUM AND MAGNESIUM LAB VALUES/ECTOPY
[2019-07-17] MEDS: FAMOTIDINE (10MG/ML) 2ML VL IV SCH (09:53)
[2019-07-17] MEDS: ENOXAPARIN SOD 30 MG/0.3 ML SYRINGE SC SCH (09:53)
--- NOTE | 2019-07-17 10:20 | NUR ---
PAGED DR MOTA FOR SECOND TIME REGARDING POTASSIUM/MAGNESIUM LAB VALUES
--- NOTE | 2019-07-17 10:57 | NUR ---
DR MOTA CALLED BACK, NEW ORDERS RECEIVED FOR 12 LEAD EKG NOW AND DAILY TO MONITOR QTI, 2 GM MAGNESIUM RIDER, POTASSIUM 80 MEQ IV ONCE.
[2019-07-17] MEDS: POTASSIUM CHL 20MEQ/100ML 100 ML IV SCH ×4 (11:25→14:56)
[2019-07-17] MEDS: MAGNESIUM SULFATE 1GM/100ML 100 ML IV SCH ×2 (11:25→12:43)
[2019-07-17] MEDS: MIDAZOLAM DRIP 50 mg/50mL 50 ML IV SCH (13:12)
[2019-07-17] MEDS: SODIUM CHLORIDE 0.9% 1,000 ML IV SCH ×2 (18:03→19:45)
--- NOTE | 2019-07-17 18:11 | NUR ---
RT NOTE RECEIVED PT INTUBATED AND ON VENT V4 ON STATED SETTINGS. VENT IS PLUGGED TO RED OUTLET. ALARMS ARE ON AND AUDIBLE AT NURSES STATION. AMBU BAG AT BEDSIDE AND CONNECTED TO O2. 8.0 ETT IS SECURED WITH ANCHORFAST AT 22 CM TO THE ORAL LEFT. BILATERAL BS ARE CLEAR/DIM. HHN GIVEN INLINE WITH 2.5 MG ALBUTEROL, 0.5 MG ATROVENT AND 0.5 MG PULMICORT WITHOUT ADVERSE REACTION NOTED. PT WAS SUCTIONED FOR SMALL RETURN. PARVEEN ORTEGA AND FAMILY MEMBERS AT BEDSIDE. CONT ORDERED. POX 99% Addendum: 07/17/19 at 2109 by Noemi Loco RT Amended: Links added.
[2019-07-17 18:24] LABS: Potassium 4.6 mmol/L (3.5-5.1)
[2019-07-17 18:26] LABS: Magnesium 2.5 mg/dL (1.6-2.6)
--- NOTE | 2019-07-17 19:10 | NUR ---
OPENING SHIFT NOTE ASSUMED CARE OF PT INTUBATED AND NOT ON SEDATION. SHAKES HEAD UPON ORAL CARE, OTHERWISE NONRESPONSIVE. PUPILS 3MM AND BRISK. COUGH/GAG PRESENT. SR ON SCENE AND LIGHTING DESIGN LECTURER WITH PVC'S, PAC'S. LEFT SUBCLAVIAN 3L. OGT IN PLACE WITH JEVITY FEEDING INFUSING AT 45 ML/HR. 5 ML RESIDUAL FROM OGT. PLACEMENT VERIFIED. NS INFUSING AT 100ML/HR. 20 G IV TO RIGHT FOREARM PATENT AND SALINE LOCKED, RIGHT FEMORAL CARLITA IN PLACE WITH GOOD WAVEFORM OBSERVED. ALEJANDRO TO GRAVITY DRAINING PALE YELLOW URINE. SCD'S IN PLACE BILATERALLY. OPTIFOAM GENTLE SACRAL DRESSING PLACED PREVENTATIVELY. UPPER BACK SKIN TEAR CDI AND COVERED WITH OPTIFOAM. PT ON SPECIALTY MATTRESS. NO INDICATION OF PAIN OBSERVED. ALL BONY PROMINENCES OFFLOADED WITH PILLOWS. PT IN FULL VIEW OF NURSES STATION. BED IN LOWEST LOCKED POSITION. WILL CONTINUE TO MONITOR. VSS
--- NOTE | 2019-07-17 19:50 | NUR ---
RT NOTE ROUTINE VENT CHECK DONE. PT INTUBATED AND ON VENT V4 ON STATED SETTINGS. VENT IS PLUGGED TO RED OUTLET. ALARMS ARE ON AND AUDIBLE AT NURSES STATION. AMBU BAG AT BEDSIDE AND CONNECTED TO O2. 8.0 ETT IS SECURED WITH ANCHORFAST AT 22 CM TO THE ORAL LEFT. BILATERAL BS ARE CLEAR/DIM. CONT ORDERED. POX 100% Addendum: 07/17/19 at 2110 by Noemi Loco RT Amended: Links added.
--- NOTE | 2019-07-17 22:00 | NUR ---
RT NOTE ROUTINE VENT CHECK DONE. PT INTUBATED AND ON VENT V4 ON STATED SETTINGS. VENT IS PLUGGED TO RED OUTLET. ALARMS ARE ON AND AUDIBLE AT NURSES STATION. AMBU BAG AT BEDSIDE AND CONNECTED TO O2. 8.0 ETT IS SECURED WITH ANCHORFAST AT 22 CM TO THE ORAL LEFT. CONT ORDERED. POX 100% Addendum: 07/17/19 at 2219 by Noemi Loco RT Amended: Links added.
[2019-07-18] VITALS (105 sets, daily range): BP systolic 101–174; BP diastolic 52–94
--- NOTE | 2019-07-18 00:02 | NUR ---
RT NOTE ROUTINE VENT CHECK DONE. PT INTUBATED AND ON VENT V4 ON STATED SETTINGS. VENT IS PLUGGED TO RED OUTLET. ALARMS ARE ON AND AUDIBLE AT NURSES STATION. AMBU BAG AT BEDSIDE AND CONNECTED TO O2. 8.0 ETT IS SECURED WITH ANCHORFAST AT 22 CM TO THE ORAL LEFT.BILATERAL BS ARE CLEAR/DIM. PT WAS SUCTIONED FOR SMALL ALBA RETURN. HHN GIVEN INLINE WITH 2.5 MG ALBUTEROL AND 0.5 MG ATROVENT WITHOUT ADVERSE REACTION NOTED. PT IS NOTED TO BE MOVING MORE AND HAS A GOOD GAG REFLEX. CONT ORDERED. POX 99% Addendum: 07/18/19 at 0015 by Noemi Loco RT Amended: Links added.
[2019-07-18] MEDS: IPRATROPIUM BROM 0.5 MG/2.5ML INH SOL NEB SCH ×4 (00:04→18:25)
[2019-07-18] MEDS: ALBUTEROL SULF 2.5 MG/0.5ML(0.5%) NEB SOLN NEB SCH ×4 (00:04→18:25)
[2019-07-18] MEDS: hydrALAZINE HCL 20 MG/ML VL IV PRN ×2 (00:59→10:15)
--- NOTE | 2019-07-18 01:56 | NUR ---
RT NOTE ROUTINE VENT CHECK DONE. PT INTUBATED AND ON VENT V4 ON STATED SETTINGS. VENT IS PLUGGED TO RED OUTLET. ALARMS ARE ON AND AUDIBLE AT NURSES STATION. AMBU BAG AT BEDSIDE AND CONNECTED TO O2. 8.0 ETT IS SECURED WITH ANCHORFAST AT 22 CM TO THE ORAL LEFT.BILATERAL BS ARE CLEAR/DIM. PT WAS SUCTIONED FOR SMALL ALBA RETURN. PT IS NOTED TO BE MOVING MORE AND HAS A GOOD GAG REFLEX. HME, T-PIECE AND INLINE SUCTION CHANGED WITHOUT INCIDENT. CONT ORDERED. PT TEMP 98.8 POX 98% Addendum: 07/18/19 at 0217 by Noemi Loco RT Amended: Links added.
--- NOTE | 2019-07-18 02:45 | NUR ---
FULL BED BATH AND LINEN CHANGE DONE AT THIS TIME. SKIN ASSESSED FOR ANY CHANGES. TOLERATED WELL. VSS.
[2019-07-18 03:56] LABS: Basophils # (auto) 0 uL; Basophils % (auto) 0.3 % (0.0-2.0); Eosinophils # (auto) 0 uL; Hematocrit 36.5 % (36.0-46.0); Hemoglobin 12.6 g/dL (12.2-16.2); Lymphocytes # (auto) 0.4 uL; Lymphocytes % (auto) 3.1 % (10.0-50.0); Mean Corpuscular Hemoglobin 31.9 pg (28.0-32.0); Mean Corpuscular Hgb Conc. 34.5 g/dL (32.0-36.0); Mean Corpuscular Volume 92.5 fL (80.0-100.0); Monocytes # (auto) 0.5 uL; Monocytes % (auto) 3.9 % (0.0-12.0); Neutrophils # (auto) 12.5 uL; Neutrophils % (auto) 92.7 % (37.0-80.0); Nucleated Red Blood Cells % 0.1 %; Platelet Count (auto) 143 10^3/uL (140-450); Red Blood Cells 3.95 10^6/uL (4.0-5.20); Red Cell Distribution Width 13.5 % (11.8-14.3); White Blood Cell 13.6 10^3/uL (4.4-10.8)
[2019-07-18 04:14] LABS: Potassium 4.2 mmol/L (3.5-5.1)
--- NOTE | 2019-07-18 04:18 | NUR ---
RT NOTE ROUTINE VENT CHECK DONE. PT INTUBATED AND ON VENT V4 ON STATED SETTINGS. VENT IS PLUGGED TO RED OUTLET. ALARMS ARE ON AND AUDIBLE AT NURSES STATION. AMBU BAG AT BEDSIDE AND CONNECTED TO O2. 8.0 ETT IS SECURED WITH ANCHORFAST AT 22 CM TO THE ORAL LEFT. PT TEMP 98.8 POX 99% Addendum: 07/18/19 at 0418 by Noemi Loco RT Amended: Links added.
[2019-07-18 04:24] LABS: Albumin 2.6 g/dL (3.4-5.0); BUN/Creatinine Ratio 27.4; Bilirubin, Total 0.4 mg/dL (0.2-1.0); Calcium 8.7 mg/dL (8.5-10.1); Total Protein 6.1 g/dL (6.4-8.2)
[2019-07-18] MEDS: SODIUM CHLORIDE 0.9% 1,000 ML IV SCH ×2 (05:03→14:30)
[2019-07-18] MEDS: methylPREDNISolone SOD SUCC 40 MG/ML VL IV SCH ×2 (05:10→16:08)
[2019-07-18] MEDS: BUDESONIDE (INHALATION) 0.5 MG/2 ML NEB NEB SCH ×2 (05:52→18:24)
--- NOTE | 2019-07-18 07:30 | NUR ---
RECEIVED REPORT FROM LAURA SAINI AND ASSUMED CARE OF PATIENT.
[2019-07-18] MEDS: MIDAZOLAM DRIP 50 mg/50mL 50 ML IV SCH (07:40)
--- NOTE | 2019-07-18 08:00 | NUR ---
ASSESSMENT COMPLETED - SEE FLOWSHEET. PATIENT WITH COUGH/GAG REFLEX NOTED WITH SUCTIONING. PERRLA 3MM AND BRISK. WITHDRAWS LEFT ARM TO TOUCH, OTHERS FLACCID.
--- NOTE | 2019-07-18 10:00 | NUR ---
PATIENT ATTEMPTING TO OPEN EYES TO VERBAL AND TACTILE STIMULI. RANDOM RIGHT ARM MOVEMENTS NOTED RIGHT ARM. PATIENT'S DAUGHTERS AT BEDSIDE.
[2019-07-18] MEDS: FAMOTIDINE (10MG/ML) 2ML VL IV SCH (10:05)
[2019-07-18] MEDS: ENOXAPARIN SOD 30 MG/0.3 ML SYRINGE SC SCH (10:05)
--- NOTE | 2019-07-18 11:00 | NUR ---
PATIENT FOLLOWING COMMANDS TO MOVE EXTREMITIES.
--- NOTE | 2019-07-18 12:00 | NUR ---
PATIENT NODDING HEAD APPROPRIATELY TO QUESTIONS.
--- NOTE | 2019-07-18 12:15 | NUR ---
DR YUAN VISITS AND EXAMINES PATIENT - ORDERS RECEIVED. PATIENT'S DAUGHTERS AT BEDSIDE.
--- NOTE | 2019-07-18 12:25 | NUR ---
Nutrition Follow-up Notes Wt.: 45.2 kg Pt continues to be intubated sedated with no family by bedside. per records pt s/p head CT today. pt currently NPO on EN support with Jevity 1.2 @ 30 ml./hr providing 864 kcals and 39 gm proteins, Est. Needs BW [id number] kcal (25-30 kcal/kgBW), 49-58 gms pro (1.0-1.2 gms/kgBW). Will continue to monitor pertinent labs and reassess nutrient need prn Labs: BUN 23 H, GLU 144 H ALB 2.6 L. Skin: Alfonso scale 11, high risk, skin intact per dip filler. GI: Pt has no BM reported per dip filler. PES: Impaired swallowing r/t current medical condition aeb pt`s intubated sedated with order of NPO Altered nutrition related lab values r/t current/chronic medical condition aeb elev creat hypocalcemia, hyperglycemia, mod hypoalb Will continue to monitor NPO status, EN tolerance, skin status, pertinent labs and weight trend. F/u in 2 to 3 days. Rec.: 1.) advance diet as medically feasible. 2) Advance EN support with Jevity 1.2 @ 45 ml.h per MD approval. 3) continue current plan of care
--- NOTE | 2019-07-18 14:30 | NUR ---
DR HAN VISITS AND EXAMINES PATIENT - ORDERS RECEIVED.
--- NOTE | 2019-07-18 15:00 | NUR ---
PATIENT WITH HYPER COUGH/GAG REFLEX AT TIMES, MOD AMT THIN ORAL SECRETIONS NOTED.
--- NOTE | 2019-07-18 15:00 | NUR ---
DR. YUAN AT BEDSIDE ORDERS RECEIVED
--- NOTE | 2019-07-18 15:50 | NUR ---
RT NOTE: PT TAKEN OFF OF SIMV AND PLACED BACK ONTO AC 325 [address] YUAN ORDERS DUE TO PT CONTINUOUSLY BREATH STAKING AND BEGINNING TO C/O OF TIRING OUT. STILL WANTS CPAP FOR AM. WILL CONTINUE TO MONITOR.
--- NOTE | 2019-07-18 19:00 | NUR ---
TEMP 99.5-99.7 - COOLING MEASURES IN PLACE - WILL CONTINUE TO MONITOR TEMP.
--- NOTE | 2019-07-18 19:30 | NUR ---
Opening Shift Note Received report from day shift RN. Assumed care of pt. Full assessment complete, see interventions. Pt follows commands and opens eyes spontaneously. Pt nods her head "no" when asked if any pain present. Verbally educated pt to press call button if needs assistance, pt nodded her head "yes' that she understood. Call light within reach. bed locked in lowest position. VSS. Pt in full view of RN. All alarms on and audible.
--- NOTE | 2019-07-18 20:00 | NUR ---
Family Pt's daughters at bedside. All questions and concerns addressed at this time.
[2019-07-18] MEDS: OXYBUTYNIN CHL 5 MG TAB PO SCH (21:29)
[2019-07-18] MEDS: ATORVASTATIN 20 MG TAB PO SCH (21:29)
[2019-07-19] VITALS (82 sets, daily range): BP systolic 99–172; BP diastolic 52–108
[2019-07-19] MEDS: ALBUTEROL SULF 2.5 MG/0.5ML(0.5%) NEB SOLN NEB SCH ×5 (00:07→20:53)
[2019-07-19] MEDS: IPRATROPIUM BROM 0.5 MG/2.5ML INH SOL NEB SCH ×5 (00:07→20:53)
[2019-07-19] MEDS: methylPREDNISolone SOD SUCC 40 MG/ML VL IV SCH ×2 (03:48→18:19)
[2019-07-19 04:26] LABS: Basophils # (auto) 0 uL; Basophils % (auto) 0.1 % (0.0-2.0); Eosinophils # (auto) 0 uL; Hematocrit 36.6 % (36.0-46.0); Hemoglobin 12.2 g/dL (12.2-16.2); Lymphocytes # (auto) 1.3 uL; Lymphocytes % (auto) 10.9 % (10.0-50.0); Mean Corpuscular Hemoglobin 31.5 pg (28.0-32.0); Mean Corpuscular Hgb Conc. 33.5 g/dL (32.0-36.0); Monocytes # (auto) 1.7 uL; Monocytes % (auto) 14.2 % (0.0-12.0); Neutrophils # (auto) 8.9 uL; Neutrophils % (auto) 74.8 % (37.0-80.0); Platelet Count (auto) 138 10^3/uL (140-450); Red Blood Cells 3.89 10^6/uL (4.0-5.20); Red Cell Distribution Width 14.1 % (11.8-14.3); White Blood Cell 11.8 10^3/uL (4.4-10.8)
--- NOTE | 2019-07-19 04:30 | NUR ---
CARES BED BATH GIVEN AND FULL LINEN CHANGE PERFORMED. PT TOLERATED WELL. SKIN INTEGRITY ASSESSED FOR ANY CHANGES; NONE NOTED AT THIS TIME.
[2019-07-19 04:47] LABS: Albumin 2.6 g/dL (3.4-5.0); BUN/Creatinine Ratio 35.6; Calcium 8.6 mg/dL (8.5-10.1); Potassium 3.8 mmol/L (3.5-5.1)
[2019-07-19] MEDS: SODIUM CHLORIDE 0.9% 1,000 ML IV SCH (04:48)
[2019-07-19 04:50] LABS: Bilirubin, Total 0.5 mg/dL (0.2-1.0); Total Protein 5.9 g/dL (6.4-8.2)
[2019-07-19] MEDS: ATENOLOL 25 MG TAB PO SCH (05:37)
[2019-07-19] MEDS: hydrALAZINE HCL 20 MG/ML VL IV PRN (05:38)
[2019-07-19] MEDS: BUDESONIDE (INHALATION) 0.5 MG/2 ML NEB NEB SCH ×2 (05:50→20:54)
--- NOTE | 2019-07-19 05:57 | NUR ---
PAGED DR. MOTA REGARDING EKG READING A-FIB RVR. AWAITING CALL BACK FOR FURTHER INSTRUCTION. WILL CONTINUE TO MONITOR
--- NOTE | 2019-07-19 07:35 | NUR ---
OPENING NOTE Report received from Ghada SAINI, care assumed. Physical assessment performed. Afebrile. Patient opens eyes, left one more than right. Patient able to follow simple commands, squeeze hands with equal strength. Pulses palpable bilaterally, edema noted on hands. Right groin arterial line intact, line flushed and calibrated. Dressing is CDI. Various ectopy noted on bedside monitor, afib, Sinus tachycardia with PVC's. Heart rate ranging 80-110. Lungs clear anteriorly. Patient tolerating ventilator at this time. Oxygen saturation 99%. No distress noted. Bowel sounds noted. OGT clamped and tube feedings held for Cpap trial attempt this morning. Berumen catheter patent, secure below bladder. See skin/wound assessment. Bed locked in lowest position, alarms in place. Will continue to monitor.
--- NOTE | 2019-07-19 08:00 | NUR ---
FAMILY AT BEDSIDE Patient daughters at bedside. Family updated on plan of care. All questions and concerns addressed.
--- NOTE | 2019-07-19 08:48 | NUR ---
Respiratory note: PLACED PT ON CPAP MODE, PT TOLERATING CHANGES WELL. PT AWAKE AND FOLLOWING COMMANDS, SLIGHT DIFFICULTY OPENING EYES. NO S/S OF RESPIRATORY DISTRESS NOTED AT THIS TIME. ALARMS SET AND AUDIBLE. BREATH SOUNDS CLEAR THROUGHOUT. PT'S DAUGHTERS AT BEDSIDE. NOTIFIED PARVEEN MURO OF CHANGES. WEANING PARAMETER AND ABG TO FOLLOW. WILL CONTINUE TO MONITOR.
--- NOTE | 2019-07-19 08:48 | NUR ---
CPAP TRIAL BEGUN.
--- NOTE | 2019-07-19 09:21 | NUR ---
POISON CONTROL Accounts Receivable Processor from poison control called for update on patient. Will continue to monitor and contact us with more information regarding side effects and medication to assist with patients recovery.
[2019-07-19] MEDS: FAMOTIDINE (10MG/ML) 2ML VL IV SCH (09:56)
[2019-07-19] MEDS: MIDAZOLAM DRIP 50 mg/50mL 50 ML IV SCH (09:56)
[2019-07-19] MEDS: ENOXAPARIN SOD 30 MG/0.3 ML SYRINGE SC SCH (09:56)
[2019-07-19] MEDS: OXYBUTYNIN CHL 5 MG TAB PO SCH ×2 (09:59→21:38)
--- NOTE | 2019-07-19 10:23 | NUR ---
PAGED regarding Cpap ABG and weaning parameters. Message left with office. Awaiting call back. Will continue to monitor.
--- NOTE | 2019-07-19 10:50 | NUR ---
RETURNED CALL notified of ABG and weaning parameters. Orders obtained for extubation.
--- NOTE | 2019-07-19 11:38 | NUR ---
PATIENT EXTUBATED BY RT Extubation order received by , RT at bedside. Patient extubated with no problems, patient tolerated well. Patient placed on 30% cool mist mask. 100% Sats prior to extubation 99%, following extubation 100%. No stridor or shortness of breath noted. Continue to monitor.
--- NOTE | 2019-07-19 11:38 | NUR ---
Respiratory note: EXTUBATED PT WITH PARVEEN MURO AT BEDSIDE. PT NOW ON COOL AEROSOL 8L, 30%. HR 92, RR 18, POX 99%. NO STRIDOR NOTED AT THIS TIME. WILL CONTINUE TO MONITOR.
--- NOTE | 2019-07-19 13:06 | NUR ---
MD PAGED paged for orders regarding patients lung sounds becoming more coarse wheeze with some stridor noted. Oxygen saturation at 91% RT increased Fio2 to 40%, oxygen saturation 92% will continue to monitor, awaiting MD call.
--- NOTE | 2019-07-19 13:14 | NUR ---
PAGED paged regarding atrial fibrillation. Awaiting call back. Will continue monitoring.
--- NOTE | 2019-07-19 13:18 | NUR ---
RETURNED PAGED return call. Updated on patient status and reason for page. Orders received. RT notified.
[2019-07-19] MEDS ORDERED: EPINEPHrine HCL 0.5 ML NEB ONE (13:22)
[2019-07-19] MEDS ORDERED: methylPREDNISolone SOD SUCC 125 MG/2 ML VL ONE (13:25)
[2019-07-19] MEDS ORDERED: EPINEPHrine HCL 0.5 ML NEB NEB ONE (13:30)
[2019-07-19] MEDS ORDERED: methylPREDNISolone SOD SUCC 125 MG/2 ML VL IV ONE (13:30)
--- NOTE | 2019-07-19 14:29 | NUR ---
ROUNDING NOTE Patient resting in bed, alert and calm. No stridor or shortness of breath noted. Respirations are even and unlabored at this time. Patient still on cool mist mask, oxygen saturation 95%. Will continue to monitor.
--- NOTE | 2019-07-19 14:48 | NUR ---
MD VISIT at bedside. MD reviewing chart, MD made aware of Atrial fibrillation. Orders received.
[2019-07-19] MEDS ORDERED: DIGOXIN (250MCG/ML) 2 ML AMPULE IV ONE (15:00)
--- NOTE | 2019-07-19 15:33 | NUR ---
OXYGENATION Patient placed on 3 L nasal cannula. Oxygen saturation 95%. Patient denies distress or shortness of breath. All other vital signs stable.
--- NOTE | 2019-07-19 16:00 | NUR ---
CARES Partial linen change complete. Skin assessment performed, skin intact. Blanchable redness of sacrum. Patient tolerated activity well. No distress noted, vitals stable. Bed locked in lowest position, alarms in place. Call light within reach, pt instructed to call for assistance. Family at bedside.
--- NOTE | 2019-07-19 16:37 | NUR ---
ARTERIAL LINE D/C Right groin arterial line D/C per MD order. Manual pressure held for 10 minutes. No bleeding or hematoma noted. Pressure dressing applied. Will continue to monitor.
--- NOTE | 2019-07-19 17:32 | NUR ---
MD UPDATE called for update on patients respiratory status. Orders received.
--- NOTE | 2019-07-19 18:14 | NUR ---
INCENTIVE SPIROMETER Education on IS device and importance given to patient and family members at bedside. Patient instructed on how to perform. Patient acknowledge understanding. Patient unable to perform exercise. Will attempt again.
--- NOTE | 2019-07-19 19:09 | NUR ---
REPORT Report given to Zaina SAINI, care endorsed. Vitals stable, no distress noted.
--- NOTE | 2019-07-19 19:41 | NUR ---
PT REFUSED HER MED NEB TX @ THIS TIME. PARVEEN DAY IS AWARE. NO DISTRESS NOTED. SHE IS CURRENTLY ON 3L SPO2 95%, HR 101 AND RR 21. WILL CONTINUE OT MONITOR.
--- NOTE | 2019-07-19 20:57 | NUR ---
PT'S DAUGHTER IS @ BEDSIDE AND PT IS NOW AGREEING TO TAKE HER TX. NO DISTRESS NOTED. Addendum: 07/19/19 at 2057 by SAE GARCIA RT Amended: Links added.
[2019-07-19] MEDS: ATORVASTATIN 20 MG TAB PO SCH (21:53)
[2019-07-20] VITALS (21 sets, daily range): BP systolic 128–161; BP diastolic 81–114
[2019-07-20] MEDS: ALBUTEROL SULF 2.5 MG/0.5ML(0.5%) NEB SOLN NEB SCH ×4 (01:43→19:02)
[2019-07-20] MEDS: IPRATROPIUM BROM 0.5 MG/2.5ML INH SOL NEB SCH ×4 (01:43→19:02)
[2019-07-20 04:51] LABS: Basophils # (auto) 0 uL; Eosinophils # (auto) 0 uL; Hematocrit 38.3 % (36.0-46.0); Lymphocytes # (auto) 0.5 uL; Lymphocytes % (auto) 5.3 % (10.0-50.0); Mean Corpuscular Volume 94.2 fL (80.0-100.0); Monocytes # (auto) 0.7 uL; Monocytes % (auto) 7.2 % (0.0-12.0); Neutrophils # (auto) 7.9 uL; Neutrophils % (auto) 87.5 % (37.0-80.0); Platelet Count (auto) 148 10^3/uL (140-450); Red Blood Cells 4.06 10^6/uL (4.0-5.20); Red Cell Distribution Width 13.6 % (11.8-14.3)
[2019-07-20 05:10] LABS: BUN/Creatinine Ratio 41.1; Calcium 8.9 mg/dL (8.5-10.1); Potassium 3.8 mmol/L (3.5-5.1)
[2019-07-20] MEDS: methylPREDNISolone SOD SUCC 40 MG/ML VL IV SCH ×3 (06:00→11:27)
--- NOTE | 2019-07-20 06:08 | NUR ---
GAVE COMPLETE BED BATH WITH CHG WIPES AND LINEN CHANGE; PT. TOLERATED WELL; WILL CONT. TO MONITOR.
--- NOTE | 2019-07-20 07:30 | NUR ---
OPENING NOTE Report received from Zaina RN, care assumed. Physical assessment performed. Afebrile. Patient is alert and calm. Patient able to follow simple commands. Patient does have periods of confusion and does not remember coming into the hospital. Pulses palpable bilaterally. Atrial fibrillation noted on bedside monitor and EKG, heart rate ranging 90-130. Lungs coarse with wheeze anteriorly. Patient on 2 L nasal cannula, Oxygen saturation 96%. No distress noted. Bowel sounds noted. Berumen catheter patent, secure below bladder. See skin/wound assessment. Bed locked in lowest position, alarms in place. Will continue to monitor.
[2019-07-20] MEDS: BUDESONIDE (INHALATION) 0.5 MG/2 ML NEB NEB SCH (07:36)
--- NOTE | 2019-07-20 08:07 | NUR ---
Assessment Pt is an 88 yr old intubated female. Pt's daughter, Pratima Burns, was bedside and answered questions. Pt lives with this daughter and is her emergency contact at [phone]. Prior to hospitalization, pt was ambulatory, and independent with ADL's, cooking and cleaning. Pt had been dealing with a lot of stress and anxiety with her granddaughter living with them and her kids. The pt's granddaughter was supposed to move out numerous times but keeps prolonging it, even after the corporate travel manager had been called multiple times on her. Pt admitted due to overdosing on anti-depressants. Pt has no history of suicidal attempts or ideation. Pt's daughter found her in her bed, passed out and knew that something was wrong. Pt was previously prescribed the medication but only took a weeks worth previously. Pt daughter stated that if her daughter is still living in her home when the pt is ready to d/c, that her mom will move in with her other daughter in a much more peaceful environment. SW discussed the importance of opening communication with the pt from now on about any suicidal thoughts she might be having and showing her an increase in love and understanding. Pt currently receives [employer] income and doesn't receive any community services presently. No AD on file. SW will assess d/c needs further closer to d/c. Addendum: 07/20/19 at 0822 by AIDE VELASCO Amended: Links added. Addendum: 07/20/19 at 1359 by AIDE VELASCO SS Per consult for dysfunctional family life, SW assessed home life for pt safety.
--- NOTE | 2019-07-20 09:00 | NUR ---
FAMILY AT BEDSIDE Patient daughters at bedside.
[2019-07-20] MEDS: DIGOXIN (250MCG/ML) 2 ML AMPULE IV SCH (09:22)
[2019-07-20] MEDS: FAMOTIDINE (10MG/ML) 2ML VL IV SCH (09:22)
[2019-07-20] MEDS: ATENOLOL 25 MG TAB PO SCH (09:23)
[2019-07-20] MEDS: ENOXAPARIN SOD 30 MG/0.3 ML SYRINGE SC SCH (09:23)
[2019-07-20] MEDS: OXYBUTYNIN CHL 5 MG TAB PO SCH ×2 (09:23→22:21)
--- NOTE | 2019-07-20 09:30 | NUR ---
BLADDER TRAINING Berumen catheter clamped for bladder training per MD order.
--- NOTE | 2019-07-20 10:45 | NUR ---
MD VISIT at bedside assessing patient. MD aware of slight stridor still present. MD stated to continue to give breathing tx, IS, and titrate off O2 as tolerated to keep oxygen saturation greater than 92%.
--- NOTE | 2019-07-20 11:14 | NUR ---
BLADDER TRAINING Edwards catheter unclamped, pt had sensation of needing to urinate. Once bladder drained, edwards reclamped. Will continue to monitor.
--- NOTE | 2019-07-20 12:00 | NUR ---
PHYSICAL THERAPIST PAGED TO BEDSIDE FOR PT MARILEEAL
--- NOTE | 2019-07-20 12:30 | NUR ---
OXYGENATION Attempted to remove oxygen per MD request. On room air, oxygen saturation 89%. Patient placed on 1 L nasal cannula, oxygen saturation 93%.
--- NOTE | 2019-07-20 12:32 | NUR ---
Nutrition Follow-up Notes Wt.: 42.5 KG Pt`s successfully extubated sleeping with no family by bedside. pt is currently NPO was on EN support with Jevity 1.2 @ 30 ml./hr providing 864 kcals and 39 gm proteins, Est. Needs BW [id number] kcal (25-30 kcal/kgBW), 49-58 gms pro (1.0-1.2 gms/kgBW). Will continue to monitor pertinent labs and reassess nutrient need prn Labs: BUN 30 H, ALB 2.6 L. Skin: Alfonso scale 13, mod risk, skin intact per dock operator. GI: Pt had 1 BM today per dock operator. PES: Impaired swallowing r/t current medical condition aeb pt`s intubated sedated with order of NPO Altered nutrition related lab values r/t current/chronic medical condition aeb elev creat hypocalcemia, hyperglycemia, mod hypoalb Will continue to monitor NPO status, skin status, pertinent labs and weight trend. F/u in 2 to 3 days. Rec.: 1.) advance diet as medically feasible. 2) resume EN support with Jevity 1.2 @ 45 ml.h per MD approval if pt continues to be NPO. 3) continue current plan of care
--- NOTE | 2019-07-20 12:48 | NUR ---
ACTIVITY Patient stated she needed to have bowel movement. Patient positioned on side of bed. Patient then assisted to bedside commode with moderate/maximum assistance. Patient had small smear. Patient then assisted to chair. Patient very weak, more so on upper extremities versus lower. Family at bedside. Patient tolerated activity well. Call light within reach.
--- NOTE | 2019-07-20 14:00 | NUR ---
ACTIVITY Patient attempted to have another bowel movement. Only a small smear noted. Patient falling asleep in chair. Patient assisted back to bed. Patient tolerated activity well. Call light within reach. Will continue to monitor.
--- NOTE | 2019-07-20 14:09 | NUR ---
BLADDER TRAINING Berumen catheter unclamped. Clear yellow urine draining.
[2019-07-20] MEDS ORDERED: ATENOLOL 25 MG TAB PO ONE (15:30)
--- NOTE | 2019-07-20 15:54 | NUR ---
SWALLOW EVALUATION COMPLETE Mavis Keyes with honey thick fluids.
--- NOTE | 2019-07-20 16:03 | NUR ---
SWALLOW EVALUATION. PATIENT SOMEWHAT CONFUSED BUT ABLE TO FOLLOW DIRECTIONS. FAMILY AND NURSING PRESENT. PATIENT HAS NO TEETH OR DENTURES, UPPER OR LOWER. PATIENT ABLE TO TOLERATE PUREE DIET TEXTURE WITH HONEY THICKENED LIQUIDS WITH NO OVERT SIGNS OR SYMPTOMS OF ASPIRATION. PATIENT COUGHED ON THIN LIQUIDS PER NURSING AND OBSERVED DURING TOUCH UP PAINTER EVALUATION ON NECTAR THICKENED LIQUIDS. NURSING NOTIFIED.
[2019-07-20] MEDS ORDERED: AMIODARONE HCL 150 MG in D5W 5% 100 ML IV ONE (17:45)
--- NOTE | 2019-07-20 17:50 | NUR ---
ALEJANDRO CATHETER CLAMPED FOR BLADDER TRAINING.
--- NOTE | 2019-07-20 18:11 | NUR ---
AMIODARONE Amiodarone bolus given, heart rate prior was 90-118. Post administration 70-80's. Blood pressure stable. Will continue to monitor.
--- NOTE | 2019-07-20 19:21 | NUR ---
REPORT Report given to Zaina SAINI, care endorsed. Vitals stable, no distress noted.
--- NOTE | 2019-07-20 20:50 | NUR ---
REPORT GIVEN TO PARVEEN PERRY; PT. TRANSFERRING TO [facility] RM#[id number].
--- NOTE | 2019-07-20 21:30 | NUR ---
PT. OFF UNIT TO TRANSFER TO [facility] RM#[id number].
--- NOTE | 2019-07-20 21:30 | NUR ---
TRANSFER REPORT RECEIVED FROM TURBINE OPERATOR. ASSUMED CARE OF PATIENT. PATIENT TRANSFERRED IN BED VIA CCT AND ICU FLIGHT SIMULATOR TEACHER. NO SIGNS OR SYMPTOMS OF SOB, PAIN OR DISTRESS. CURRENTLY ON 3L 02 NASAL CANNULA, 02 SAT - 97%. UPDATED ON PLAN OF CARE AND NEW ENVIRONMENT. REPOSITIONED FOR COMFORT. BED IN LOWEST POSITION, SIDE RAILS UP X2, CALL LIGHT WITHIN REACH. WILL CONTINUE TO MONITOR.
[2019-07-20] MEDS: ATORVASTATIN 20 MG TAB PO SCH (22:22)
[2019-07-20] MEDS: APIXABAN 2.5 MG TAB PO SCH (22:22)
[2019-07-21] VITALS (7 sets, daily range): BP systolic 120–158; BP diastolic 77–93
--- NOTE | 2019-07-21 04:55 | NUR ---
MORNING CARE PATIENT REFUSED MORNING CARE AND GOWN CHANGE. PARTIAL LINEN CHANGE. REPOSITIONED FOR COMFORT. BED IN LOWEST POSITION, SIDE RAILS UP X2, CALL LIGHT WITHIN REACH. WILL CONTINUE TO MONITOR.
[2019-07-21] MEDS: methylPREDNISolone SOD SUCC 40 MG/ML VL IV SCH ×2 (05:44→17:40)
[2019-07-21] MEDS: IPRATROPIUM BROM 0.5 MG/2.5ML INH SOL NEB SCH ×3 (06:46→18:29)
[2019-07-21] MEDS: ALBUTEROL SULF 2.5 MG/0.5ML(0.5%) NEB SOLN NEB SCH ×3 (06:46→18:29)
--- NOTE | 2019-07-21 07:10 | NUR ---
END OF SHIFT REPORT GIVEN TO DAY SHIFT RN. CARE ENDORSED.
--- NOTE | 2019-07-21 07:45 | NUR ---
Opening Shift Note Assumed care of patient, awake, able to follow simple commands but oriented to self only. Re-orientation done. Patient came in due to possible Celexa overdose, intubated on admission, extubated 07/19. Sheree Garcia RN, [facility] Hospital[facility] Machine Operator, Melany [facility] Director informed for a need of safety personnel at bedside, but unable to provide sitter at this time. Patient's room close to nurse station. No S/S of distress/SOB or pain. Oxygen saturation 93% on 3 LPM oxygen via nasal cannula. See interventions for complete assessment. Bed locked on low position, side rails up x2, bed alarms on at all times, call saavedra within reach, instructed on POC and to call for assist PRN, will continue to monitor for changes Q1hr and PRN.
--- NOTE | 2019-07-21 08:30 | NUR ---
Patient's daughter Pratima at bedside, updated on patient's status and POC. All questions and concerns addressed.
--- NOTE | 2019-07-21 09:50 | NUR ---
Came back from lunch, patient back to bed from bedside chair. Addendum: 07/21/19 at 1332 by Coty Srinivasan RN time of occurrence 1300
--- NOTE | 2019-07-21 09:50 | NUR ---
Patient out of bed to bedside chair with Casa PT, fall precautions in place. Patient tolerated well.
[2019-07-21] MEDS: APIXABAN 2.5 MG TAB PO SCH ×2 (11:24→22:42)
[2019-07-21] MEDS: FAMOTIDINE (10MG/ML) 2ML VL IV SCH (11:25)
[2019-07-21] MEDS: ATENOLOL 25 MG TAB PO SCH (11:25)
[2019-07-21] MEDS: DIGOXIN (250MCG/ML) 2 ML AMPULE IV SCH (11:26)
[2019-07-21 11:43] LABS: Basophils # (auto) 0 uL; Basophils % (auto) 0.3 % (0.0-2.0); Eosinophils # (auto) 0 uL; Hematocrit 40.1 % (36.0-46.0); Hemoglobin 13.2 g/dL (12.2-16.2); Lymphocytes # (auto) 0.9 uL; Mean Corpuscular Hemoglobin 31.1 pg (28.0-32.0); Mean Corpuscular Volume 94.2 fL (80.0-100.0); Monocytes # (auto) 1.4 uL; Monocytes % (auto) 11.6 % (0.0-12.0); Neutrophils % (auto) 81.1 % (37.0-80.0); Platelet Count (auto) 168 10^3/uL (140-450); Red Blood Cells 4.26 10^6/uL (4.0-5.20); Red Cell Distribution Width 13.5 % (11.8-14.3); White Blood Cell 12.4 10^3/uL (4.4-10.8)
[2019-07-21 11:52] LABS: Calcium 9.2 mg/dL (8.5-10.1); Potassium 3.6 mmol/L (3.5-5.1)
--- NOTE | 2019-07-21 12:05 | NUR ---
Dr Echeverria at bedside, updated on patient's status. Patient seen and examined. Received verbal order for sitter at bedside 1:1. Orders read back and verified. Will carry out.
[2019-07-21] MEDS: DOXYCYCLINE 100MG/250ML 250 ML IV SCH (13:51)
[2019-07-21] MEDS: OXYBUTYNIN CHL 5 MG TAB PO SCH ×2 (13:51→22:42)
--- NOTE | 2019-07-21 14:00 | NUR ---
Bladder training facilitated, edwards catheter clamped at this time.
--- NOTE | 2019-07-21 14:05 | NUR ---
Dr Cabrera at bedside, updated on patient's status. Informed Dr Garcia started patient on Atenolol, verbalized understanding and states "It's ok, it's low dose." Patient seen and examined. No new orders at this time.
--- NOTE | 2019-07-21 14:45 | NUR ---
Telepsyche facilitated, awaiting call from psychiatrist.
--- NOTE | 2019-07-21 16:00 | NUR ---
Berumen catheter unclamped.
--- NOTE | 2019-07-21 16:15 | NUR ---
LT subclavian discontinued with sterile technique, catheter and blue tip fully intact. Pressure dressing applied to site. No bleeding noted. Patient tolerated procedure well.
--- NOTE | 2019-07-21 16:50 | NUR ---
Telepsyche consult done, awaiting report from psychiatrist.
--- NOTE | 2019-07-21 17:37 | NUR ---
Edwards catheter dc'd Order to discontinue edwards catheter. Edwards dc'd with clean technique following deflation of balloon. Patient tolerated well with no complaints of pain. Continue care.
--- NOTE | 2019-07-21 18:30 | NUR ---
LT forearm IV dressing changed.
--- NOTE | 2019-07-21 18:53 | NUR ---
Telepsych report still pending, followed up with [facility] via telephone number [phone]. Awaiting report.
--- NOTE | 2019-07-21 19:05 | NUR ---
Telepsych report received. Inserted to chart.
--- NOTE | 2019-07-21 19:20 | NUR ---
Opening Shift Note Received report of full code nayla patient. pt is only alert and orientated to self, trying to get out of bed, sitter at bedside. continuing to reorientate patient to self and situation. Spo2 95-100% on 1L NC. vvs. For more information see interventions. All and safety precautions in place. Bed alarm set and bed in lowest position with 3x side rails up on speciality bed.
[2019-07-21] MEDS ORDERED: ZYPREXA 2.5 MG IM ONE (21:00)
--- NOTE | 2019-07-21 21:00 | NUR ---
increasing agitation called md rachel and informed about patient hitting staff. order for im zyprexa.
[2019-07-21] MEDS ORDERED: OLANZAPINE IM ONE (21:15)
[2019-07-21] MEDS: ATORVASTATIN 20 MG TAB PO SCH (22:42)
[2019-07-22] VITALS: BP 151/97
[2019-07-22] MEDS: DOXYCYCLINE 100MG/250ML 250 ML IV SCH (00:30)
[2019-07-22] MEDS: ALBUTEROL SULF 2.5 MG/0.5ML(0.5%) NEB SOLN NEB SCH ×4 (00:33→20:24)
[2019-07-22] MEDS: IPRATROPIUM BROM 0.5 MG/2.5ML INH SOL NEB SCH ×4 (00:33→20:24)
--- NOTE | 2019-07-22 03:30 | NUR ---
Complete bed bath given patient tolerated but was agitated. skin reassess and no new breakdown noted.
[2019-07-22 04:00] VITALS: BP 121/59
--- NOTE | 2019-07-22 05:30 | NUR ---
bladder scan 550ml seen on bladder scanner. palpated firm bladder.
--- NOTE | 2019-07-22 06:25 | NUR ---
RT NOTE: WENT TO PTS ROOM TO ADMINISTER BREATHING TX, SCANNED PTS WRIST BAND, PLACED MEDICATION ALBUTEROL AND ATROVENT INTO NEBULIZER. PT STATED THAT SHE DID NOT WANT THE TX WHEN I TRIED TO PLACE MASK ON PTS FACE. NO S/S OF SOB. WILL CONTINUE TO MONITOR PT. RN MADE AWARE.
[2019-07-22 06:37] LABS: Basophils # (auto) 0 uL; Basophils % (auto) 0.1 % (0.0-2.0); Eosinophils # (auto) 0 uL; Hematocrit 39.8 % (36.0-46.0); Hemoglobin 13.3 g/dL (12.2-16.2); Lymphocytes # (auto) 0.6 uL; Lymphocytes % (auto) 6.6 % (10.0-50.0); Mean Corpuscular Hemoglobin 31.8 pg (28.0-32.0); Mean Corpuscular Hgb Conc. 33.5 g/dL (32.0-36.0); Mean Corpuscular Volume 95.1 fL (80.0-100.0); Monocytes % (auto) 10.3 % (0.0-12.0); Neutrophils # (auto) 7.8 uL; Platelet Count (auto) 168 10^3/uL (140-450); Red Blood Cells 4.19 10^6/uL (4.0-5.20); Red Cell Distribution Width 13.4 % (11.8-14.3); White Blood Cell 9.4 10^3/uL (4.4-10.8)
[2019-07-22 06:54] LABS: BUN/Creatinine Ratio 46.3; Calcium 8.8 mg/dL (8.5-10.1); Potassium 3.7 mmol/L (3.5-5.1)
[2019-07-22] MEDS: methylPREDNISolone SOD SUCC 40 MG/ML VL IV SCH (07:03)
[2019-07-22 08:00] VITALS: BP 141/79
--- NOTE | 2019-07-22 08:00 | NUR ---
Opening Shift Note Assumed care of patient, awake and alert. Patient A&Ox1. Patient on the monitor. Patient has sitter Constantino CCT at bedside. IV 20G right forearm saline locked, patent, clean, dry, and intact. Berumen to gravity. No S/S of distress/SOB or pain. Instructed on POC and to call for assist. Bed locked an in the lowest position, side rails up x3, call light with in reach, Patient on specialty bed. Will continue to monitor.
--- NOTE | 2019-07-22 08:30 | NUR ---
Patient sitting up in bed eating breakfast with assistance from Deborah CCT. Patient has poor appetite only ate 5% of breakfast. Will continue to monitor.
[2019-07-22] MEDS ORDERED: ALBUTEROL SULF 2.5 MG/0.5ML(0.5%) NEB SOLN NEB ONE (10:00)
[2019-07-22] MEDS ORDERED: FUROSEMIDE 20 MG/2 ML VIAL IV ONE (10:00)
[2019-07-22] MEDS ORDERED: IPRATROPIUM BROM 0.5 MG/2.5ML INH SOL NEB ONE (10:00)
[2019-07-22] MEDS ORDERED: methylPREDNISolone SOD SUCC 125 MG/2 ML VL IV ONE (10:00)
--- NOTE | 2019-07-22 10:00 | NUR ---
Medication dosages, usages, and side effects explained to patient. Patient A&Ox1 unable to verbalize understanding. Patient daughter Pratima at bedside and verbalized understanding. Will continue to monitor.
[2019-07-22] MEDS: ATENOLOL 25 MG TAB PO SCH (11:10)
[2019-07-22] MEDS: OXYBUTYNIN CHL 5 MG TAB PO SCH ×2 (11:10→21:46)
[2019-07-22] MEDS: APIXABAN 2.5 MG TAB PO SCH ×2 (11:10→21:46)
[2019-07-22] MEDS: FAMOTIDINE (10MG/ML) 2ML VL IV SCH (11:12)
[2019-07-22] MEDS: DIGOXIN (250MCG/ML) 2 ML AMPULE IV SCH (11:13)
[2019-07-22 12:00] VITALS: BP 132/79
[2019-07-22] MEDS ORDERED: [UNRECOGNIZED DRUG - CODE] IV (12:01)
[2019-07-22] MEDS ORDERED: DOXY-346 PO (12:01)
[2019-07-22] MEDS ORDERED: APIX2.5T PO (12:01)
[2019-07-22] MEDS ORDERED: ATEN25TA PO (12:01)
--- NOTE | 2019-07-22 12:30 | NUR ---
Patient sitting up in bed eating lunch with assistance from Deborah. Will continue to monitor.
--- NOTE | 2019-07-22 15:19 | NUR ---
[facility] pt transferred to floor [facility] transferred to [address] via rney on manager cardiac and portable 02. All patient medications and personal belongings transferred with patient to receiving floor. Patient care transferred to MOLLY SAINI.
--- NOTE | 2019-07-22 15:30 | NUR ---
Patient is trying to get out of the bed, patient's daughter at bedside and Bari (CN) notified.
--- NOTE | 2019-07-22 15:40 | NUR ---
Left a message to Emmanuel (MERCEDES) regarding patient's daughter refused to transfer patient to [facility].
--- NOTE | 2019-07-22 15:40 | NUR ---
Pratima (Patient's daughter) at bedside.
--- NOTE | 2019-07-22 15:48 | NUR ---
Nutrition Follow-up Notes Wt.: 38.0 kg as of yesterday. Noted 4.5 kg weight loss in last 3 days likely d/t ? fluid loss aeb negative I & Os as well as poor PO intake, for past few days. Pt's on oxygen via nasal cannula, confused, family member at bedside who provide pt's additional pertinent information during rounds this morning. Per family, she's not sure of pt's usual weight, however denies any significant weight change few months dining room captain. Pt used to have good appetite, eat meals regularly, NKFA and not into any special diets dining room captain. Pt's off from EN support, had swallow eval by ST (07/19/19), currently on Pureed diet with honey thick liquids, has inadequate PO intake aeb <25% ave. consumed meals (x5) in last 2 days d/t pt refused, per family. Noted pt's for active Tele Psych consult. Est. Needs BW [id number] kcal (25-30 kcal/kgBW), 49-58 gms pro (1.0-1.2 gms/kgBW). Will continue to monitor pertinent labs and reassess nutrient need prn Labs: Pertinent labs today wnl except for BUN 37 H; Alb 2.6 L. Skin: Alfonso scale 13, mod risk, skin intact per industrial engineering director. GI: Pt had 1 BM 07/20/19 per industrial engineering director. PES: Partially resolved: Impaired swallowing r/t current medical condition aeb pt`s intubated, sedated with order of NPO Altered nutrition related lab values r/t current/chronic medical condition aeb elev creat hypocalcemia, hyperglycemia, mod hypoalb Will continue to monitor PO intake, skin status, pertinent labs and weight trend. F/u in 3 to 5 days. Rec.: 1.) Consider Ensure Enlive 1 carton TID. 2.) If Albumin continues trending down, consider Prostat 1 pkt BID. 3.) Continue close supervision and feeding assistance prn during meals. 4.) If pt's PO intake inadequate (<5-%), continue refusing meals, consider resume alternate nutrition support if medically appropriate. 5.) Refer to CDE/RD for further nutrition educ. and weight monitoring upon discharge. 6.) Continue current plan of care.
--- NOTE | 2019-07-22 15:56 | NUR ---
Dr. Serrato paged regarding d/c clearance. Awaiting to call back. Spoke to Wilbert.
--- NOTE | 2019-07-22 16:03 | NUR ---
Received a call from Dr. Serrato , patient is cleared to go home from Cardiology standpoint.
--- NOTE | 2019-07-22 16:15 | NUR ---
Received a call from Emmanuel (MERCEDES) regarding patient's daughter appears the discharge and patient will have to stay tonightDr. Nazia.
--- NOTE | 2019-07-22 16:20 | NUR ---
Patient is trying to get out of the bed, BEULAH ([facility]) notified stated will find a sitter for a patient, Pratima (Patient's daughter) made aware.
--- NOTE | 2019-07-22 16:23 | NUR ---
Report given to Girish SAINI at [facility].
--- NOTE | 2019-07-22 16:36 | NUR ---
D/C Planning Per consult for SNF Placement. Contacted and faxed medical records to [facility], [facility] and [facility]. Unable to secure bed at [facility] due to no accepting MD. Per Meg from [facility] they are unable to meet Pt needs at the time. Per Asia from [facility] Pt has been accepted to Room 53a accepting MD Dr. Norah Holcomb however MD Dr. Larkin will be covering for the mean time. ED Pizano and myself went to notified Pt daughter at bedside regarding accepting facility and Pt daughter stated she will go ahead with the appeal because she only want [facility]. Pt daughter was advised there is no accepting MD for [facility] until Friday ED Parkerrina and I spoke to JANE/Erika advised of the situation of Pt daughter refusing acceptance facility. Coremaking Supervisor Erika and the advocate Yazmin where coming to speak to Pt daughter regarding d/c plan. Coremaking Supervisor Erika then advised that Pt daughter changed her story from the previous day conversation they had a day prior and advised she will continue with the appeal because she only wants [facility]. Case Manger Erika also advised that she will speak to her director Siena regarding lateral SNF transfer once accepting MD Dr mcclelland Friday she called back and advised the director agree to the transfer however will not pay for a second transportation benefit. ED Pizano and myself went to speak to Pt daughter and advised her of the update regarding placement and she then place a call to her sister to which we also explain to her the update and they both still decline to accept SNF placement and said they will proceed with the appeal. Advised PARVEEN Barbosa of update. Addendum: 07/23/19 at 0904 by BRIGHT STEINBERG Amendment Per Vonnie from [facility] Pt has been accepted however Choice deny acceptance to [place] due to no accepting MD. Pt daughter refused [facility] and [facility] and stated she only wants [facility]. Pt daughter refused to go to [facility] over the weekend and then to be transfer to [place] [facility] on Friday07/26/19. Pt daughter verbalize understanding d/c plan. Addendum: 07/23/19 at 0941 by BRIGHT STEINBERG D/C Planning Per consult for SNF Placement. Contacted and fax[facility] medical records to [facility], [facility]. Unable to secure bed at [facility] due to no accepting MD. Per Meg admission coordinator from [facility] they are unable to meet Pt needs at the time. Per Asia from [facility] Pt has been accepted to Room 53a accepting MD, Dr. Norah Holcomb however , Dr. Larkin will be covering for the mean time. ED Pizano and myself went to notify Pt Pratima daughter, at bedside regarding accepting facility and Pratima stated she will go ahead with the appeal because she only wants [place]. ED Pizano and I spoke to [facility] medical group manager project management Erika regarding the situation of Pratima refusing accepting facility. Coremaking Supervisor Erika and Choice advocate Yazmin were coming to speak to Pratima regarding contracted facilities. They advised Pratima there is no accepting MD for [facility] until Friday because Dr. Larkin does not go to [facility]. ED Pizano and myself went to speak to Pratima and advised her of the update regarding placement. She then called her sister and requested that we explain the update to her sister as well. Both daughters continue to decline SNF placement anywhere other than [facility]. They both verbalize understanding and stated they will proceed with the appeal. Advised PARVEEN Barbosa of update.
--- NOTE | 2019-07-22 17:07 | NUR ---
Dr. Lizet Yo made aware of patient's daughter appears discharge, D/C hold. Addendum: 07/23/19 at 1644 by MOLLY RAAYA RN Dr. Lizet Yo made aware of patient's daughter appeals discharge, D/C hold.
[2019-07-22 17:22] VITALS: BP 135/75
--- NOTE | 2019-07-22 19:10 | NUR ---
OPENING NOTE Received report from day shift RN. Patient is A&O X's self with no s/s of distress noted. Patient is currently on room air with saturation at 93%. Educated patient on POC. Patient is confused but states "I'm in the hospital for overdosing on my medication." Bed is in lowest/locked position with side rails up X's 2 and call light is within reach of patient. Sitter is at bedside. Will round hourly and continue care.
--- NOTE | 2019-07-22 20:28 | NUR ---
RT NOTE PT WAS SEEN BY RT FOR HHN TX. PT TOLERATES WELL VIA MASK. NO ADVERSE REACTION NOTED. CONT ORDERED. POX 94% Addendum: 07/22/19 at 2028 by Noemi Loco RT Amended: Links added.
[2019-07-22 21:22] VITALS: BP 103/76
[2019-07-22] MEDS: ATORVASTATIN 20 MG TAB PO SCH (21:46)
[2019-07-22] MEDS: GABAPENTIN 300 MG CAP PO SCH (21:46)
[2019-07-22] MEDS: DOXYCYCLINE 100 MG TAB/CAP PO SCH (21:46)
--- NOTE | 2019-07-22 21:46 | NUR ---
PATIENT REFUSING MEDICATION Patient refusing medication. Patient is confused at this time. Tried to reorient patient, but was unsuccessful. Patient keeps stating "I overdosed on my medication so I cannot take it." Tried explaining what medication she will be taking but she is refusing and pulls blanket over head. She asked to be left alone so she could go to sleep.
[2019-07-22] MEDS ORDERED: predniSONE 20 MG TAB PO ONE (22:00)
[2019-07-23] MEDS: IPRATROPIUM BROM 0.5 MG/2.5ML INH SOL NEB SCH ×4 (00:31→19:17)
[2019-07-23] MEDS: ALBUTEROL SULF 2.5 MG/0.5ML(0.5%) NEB SOLN NEB SCH ×4 (00:31→19:17)
--- NOTE | 2019-07-23 00:31 | NUR ---
RT NOTE PT WAS SEEN BY RT FOR HHN TX. PT TOLERATES WELL VIA MASK. NO ADVERSE REACTION NOTED. CONT ORDERED. POX 94% Addendum: 07/23/19 at 0035 by Noemi Loco RT Amended: Links added.
[2019-07-23 05:10] VITALS: BP 132/76
[2019-07-23 06:41] LABS: Basophils # (auto) 0 uL; Basophils % (auto) 0.1 % (0.0-2.0); Eosinophils # (auto) 0 uL; Hematocrit 40.8 % (36.0-46.0); Hemoglobin 13.6 g/dL (12.2-16.2); Lymphocytes # (auto) 0.9 uL; Mean Corpuscular Hemoglobin 31.4 pg (28.0-32.0); Mean Corpuscular Hgb Conc. 33.3 g/dL (32.0-36.0); Mean Corpuscular Volume 94.3 fL (80.0-100.0); Monocytes # (auto) 1.1 uL; Neutrophils # (auto) 11.3 uL; Neutrophils % (auto) 84.9 % (37.0-80.0); Platelet Count (auto) 200 10^3/uL (140-450); Red Blood Cells 4.33 10^6/uL (4.0-5.20); Red Cell Distribution Width 13.3 % (11.8-14.3); White Blood Cell 13.4 10^3/uL (4.4-10.8)
[2019-07-23 07:01] LABS: Potassium 3.4 mmol/L (3.5-5.1)
[2019-07-23 07:02] LABS: BUN/Creatinine Ratio 49.5
[2019-07-23 07:03] LABS: Calcium 9.2 mg/dL (8.5-10.1)
--- NOTE | 2019-07-23 07:30 | NUR ---
Opening Shift Note RECEIVED REPORT FROM NOC RN. Assumed care of patient, awake and alert. PATIENT ON OXYGEN AT 2 LPM VIA NASAL CANNULA WITH no S/S of distress/SOB or pain. BED IN LOWEST, LOCKED POSITION WITH SIDERAILS UP x2 AND CALL LIGHT WITHIN REACH AND SITTER AT BEDSIDE. Instructed on POC and to call for assist PRN, will continue to monitor for changes Q1hr and PRN.
[2019-07-23 08:40] VITALS: BP 127/74
[2019-07-23] MEDS: DIGOXIN 0.125 MG TAB PO SCH (10:00)
[2019-07-23] MEDS: predniSONE 20 MG TAB PO SCH (10:25)
[2019-07-23] MEDS: DOXYCYCLINE 100 MG TAB/CAP PO SCH ×2 (10:25→21:53)
[2019-07-23] MEDS: APIXABAN 2.5 MG TAB PO SCH ×2 (10:26→21:52)
[2019-07-23] MEDS: OXYBUTYNIN CHL 5 MG TAB PO SCH ×2 (10:26→21:54)
[2019-07-23] MEDS: ATENOLOL 25 MG TAB PO SCH (10:26)
[2019-07-23] MEDS: FAMOTIDINE (10MG/ML) 2ML VL IV SCH (10:29)
[2019-07-23] MEDS ORDERED: POTASSIUM CHL 20MEQ/100ML 100 ML IV ONE (12:15)
[2019-07-23] MEDS ORDERED: SODIUM CHLORIDE 0.9% 250 ML IV ONE (12:15)
[2019-07-23] MEDS ORDERED: POTASSIUM CHL 20 Meq TABLET PO ONE (12:15)
[2019-07-23 13:00] VITALS: BP 124/76
[2019-07-23 16:39] LABS: Basophils # (auto) 0 uL; Basophils % (auto) 0.2 % (0.0-2.0); Eosinophils # (auto) 0 uL; Hemoglobin 13.7 g/dL (12.2-16.2); Lymphocytes # (auto) 0.4 uL; Lymphocytes % (auto) 2.7 % (10.0-50.0); Mean Corpuscular Hemoglobin 31.6 pg (28.0-32.0); Mean Corpuscular Hgb Conc. 31.8 g/dL (32.0-36.0); Mean Corpuscular Volume 99.3 fL (80.0-100.0); Monocytes # (auto) 0.6 uL; Monocytes % (auto) 3.7 % (0.0-12.0); Neutrophils % (auto) 93.4 % (37.0-80.0); Platelet Count (auto) 200 10^3/uL (140-450); Red Blood Cells 4.33 10^6/uL (4.0-5.20); Red Cell Distribution Width 14.3 % (11.8-14.3)
[2019-07-23 16:47] LABS: BUN/Creatinine Ratio 44.7; Calcium 8.6 mg/dL (8.5-10.1); Potassium 4.3 mmol/L (3.5-5.1)
[2019-07-23 16:53] VITALS: BP 141/75
--- NOTE | 2019-07-23 17:05 | NUR ---
PAGED DR. Filippo MCKINNEY THROUGH HIS EXCHANGE. AWAITING CALL BACK
--- NOTE | 2019-07-23 18:30 | NUR ---
PAGED STONE AND PLATE PREPARER APPRENTICE CASE MANAGEMENT.
--- NOTE | 2019-07-23 18:43 | NUR ---
DR. Filippo MCKINNEY RETURNED PAGE.
--- NOTE | 2019-07-23 18:45 | NUR ---
GREY ROLL WORKER CASE MANAGEMENT RETURNED PAGE.
--- NOTE | 2019-07-23 18:50 | NUR ---
PATIENT DISCHARGE HELD DUE TO APPEAL. DR. Filippo MCKINNEY AWARE.
[2019-07-23] MEDS: SODIUM CHLORIDE 0.9% 1,000 ML IV SCH (19:28)
--- NOTE | 2019-07-23 19:40 | NUR ---
OPENING NOTE PATIENT AWAKE AND ALERT. PATIENT CONFUSED, UNABLE TO STATE HER NAME/PLACE OR YEAR. PATIENT REORIENTED TO TIME/PLACE/SITUATION. PHYSICAL ASSESSMENT DONE-SEE INTERVENTIONS. ALEJANDRO IN PLACE, CLEAR YELLOW URINE NOTED. IV NOTED TO RIGHT FOREARM RUNNING NS AT 75ML/HR. PATIENT ABLE TO TURN WITH MINIMAL ASSISTANCE. PATIENT D/C HELD TODAY DUE TO FAMILY APPEAL. AWARE. SITTER AT BEDSIDE FOR PATIENT SAFETY. CALL LIGHT WITHIN REACH.
[2019-07-23 21:12] VITALS: BP 136/75
[2019-07-23] MEDS: ATORVASTATIN 20 MG TAB PO SCH (21:56)
[2019-07-23] MEDS: GABAPENTIN 300 MG CAP PO SCH (21:57)
[2019-07-23 22:34] LABS: Creatinine, Urine 44 mg/dL (30.0-125.0); Sodium Urine 86 mmol/L (40-220)
[2019-07-24] MEDS: SODIUM CHLORIDE 0.9% 1,000 ML IV SCH (01:49)
[2019-07-24 05:23] VITALS: BP 149/72
--- NOTE | 2019-07-24 05:35 | NUR ---
LAB REFUSAL PATIENT REFUSING MORNING LABS TO BE DRAWN. PATIENT WITHDRAWS ARMS AND TURNS AWAY WHEN LOOPER FIXER ATTEMPTS TO BEGIN BLOOD DRAW. PATIENT EDUCATED ON IMPORTANCE OF GETTING BLOOD WORK DONE. PATIENT REFUSING. ENCOURAGEMENT ATTEMPTED WITHOUT SUCCESS.FEED PREPARATION OPERATOR TO TRY AGAIN AT LATER TIME.
--- NOTE | 2019-07-24 06:45 | NUR ---
CLOSING PATIENT IS SLEEPING, NO DISTRESS NOTED. ALEJANDRO DRAINING TO GRAVITY. SITTER AT BEDSIDE FOR PATIENT SAFETY. WILL ENDORSE CARE TO AM SHIFT RN.
[2019-07-24] MEDS: ALBUTEROL SULF 2.5 MG/0.5ML(0.5%) NEB SOLN NEB SCH ×4 (07:08→19:22)
[2019-07-24] MEDS: IPRATROPIUM BROM 0.5 MG/2.5ML INH SOL NEB SCH ×4 (07:08→19:22)
--- NOTE | 2019-07-24 07:33 | NUR ---
Opening Shift Note Assumed care of patient, awake and alert. No S/S of distress/SOB. PT denies having any pain at this time. Bed in lowest and locked position with side rails up x2 and call light in reach. Instructed on POC and to call for assist PRN, will continue to monitor for changes Q1hr and PRN.
[2019-07-24 07:37] LABS: Basophils # (auto) 0 uL; Basophils % (auto) 0.3 % (0.0-2.0); Eosinophils # (auto) 0 uL; Eosinophils % (auto) 0.1 % (0.0-7.0); Hematocrit 37.3 % (36.0-46.0); Hemoglobin 12.4 g/dL (12.2-16.2); Lymphocytes # (auto) 1.4 uL; Lymphocytes % (auto) 9.8 % (10.0-50.0); Mean Corpuscular Hemoglobin 31.6 pg (28.0-32.0); Mean Corpuscular Hgb Conc. 33.3 g/dL (32.0-36.0); Mean Corpuscular Volume 94.9 fL (80.0-100.0); Monocytes # (auto) 1.1 uL; Monocytes % (auto) 7.7 % (0.0-12.0); Neutrophils # (auto) 11.4 uL; Neutrophils % (auto) 82.1 % (37.0-80.0); Nucleated Red Blood Cells % 0.1 %; Platelet Count (auto) 192 10^3/uL (140-450); Red Blood Cells 3.93 10^6/uL (4.0-5.20); Red Cell Distribution Width 13.6 % (11.8-14.3); White Blood Cell 13.9 10^3/uL (4.4-10.8)
[2019-07-24 07:56] LABS: BUN/Creatinine Ratio 39.8; Calcium 8.3 mg/dL (8.5-10.1); Potassium 4.1 mmol/L (3.5-5.1)
[2019-07-24 09:00] VITALS: BP 127/67
[2019-07-24] MEDS: ATENOLOL 25 MG TAB PO SCH (10:00)
[2019-07-24] MEDS ORDERED: predniSONE 20 MG TAB PO SCH (10:00)
[2019-07-24] MEDS: DIGOXIN 0.125 MG TAB PO SCH (10:00)
[2019-07-24] MEDS ORDERED: SOD CHL 0.45% 1,000 ML IV SCH (10:15)
--- NOTE | 2019-07-24 10:21 | NUR ---
SPOKE TO DR. MANUEL. PT CLEARED FOR DC FROM NEPHROLOGY.
[2019-07-24] MEDS: OXYBUTYNIN CHL 5 MG TAB PO SCH (11:13)
[2019-07-24] MEDS: APIXABAN 2.5 MG TAB PO SCH (11:13)
[2019-07-24] MEDS: FAMOTIDINE (10MG/ML) 2ML VL IV SCH (11:13)
[2019-07-24] MEDS: DOXYCYCLINE 100 MG TAB/CAP PO SCH (11:13)
[2019-07-24] MEDS: predniSONE 20 MG TAB PO SCH (11:13)
--- NOTE | 2019-07-24 11:53 | NUR ---
SPOKE TO DR. Filippo MCKINNEY. PER PT IS TO BE TRANSFERRED TODAY TO A SNF IF THE APPEAL IS DENIED.
--- NOTE | 2019-07-24 12:00 | NUR ---
WOUND CARE NOTE: IN TO ASSESS PATIENT FOR SKIN INTEGRITY AT THIS TIME. CURRENTLY, PATIENT'S ALEXANDRA SCORE IS 15. PATIENT IS ABLE TO SELF TURN/REPOSITION SELF. SHE FOLLOWS COMMANDS. SHE NO LONGER HAS AN OPEN SKIN TEAR TO THE BACK. NEW WOUND PHOTO TAKEN AT THIS TIME FOR REFERENCE. RECOMMEND: CONTINUATION WITH ALL WOUND CARE ORDERS PREVIOUSLY PRESCRIBED BY . WOUND CARE TEAM WILL CONTINUE TO MONITOR.
[2019-07-24 13:00] VITALS: BP 118/60
--- NOTE | 2019-07-24 13:12 | NUR ---
PAGED LINER MACHINE OPERATOR SS.
--- NOTE | 2019-07-24 13:14 | NUR ---
SPOKE TO MERCEDES, HERIBERTO. PER HERIBERTO THERE IS NO UPDATE ON THE APPEAL.
--- NOTE | 2019-07-24 16:04 | NUR ---
PER PT FAMILY, THEY RECEIVED A CALL AND THE APPEAL FOR THE PT DISCHARGE HAS BEEN DENIED. WILL NOTIFY HERIBERTO WITH SS.
--- NOTE | 2019-07-24 16:12 | NUR ---
HERIBERTO NOTIFIED THAT THE FAMILY RECEIVED NOTIFICATION THAT THE APPEAL HAS BEEN DECLINED. HERIBERTO ALSO NOTIFIED THAT THE FAMILY WISHES TO BE TRANSFERRED TO [facility]. HERIBERTO TO SET UP TRANSFER.
--- NOTE | 2019-07-24 16:21 | NUR ---
RECEIVED CALL FROM HERIBERTO WITH SS. PT HAS BEEN ACCEPTED TO [facility] BED [address]A [address] DR FRAZIER.
--- NOTE | 2019-07-24 16:46 | NUR ---
PAGED MD TO NOTIFY PT APPEAL DENIAL AND ACCEPTANCE TO [facility].
--- NOTE | 2019-07-24 16:55 | NUR ---
RECEIVED CALL FROM HERIBERTO WITH SS. [facility] CALL WITH [facility] #[id number] GIVEN BY THE CHOICE STONE RIGGER, AMRIK.
[2019-07-24 17:00] VITALS: BP 107/59
--- NOTE | 2019-07-24 17:17 | NUR ---
PAGED DR. MCKINNEY. AWAITING CALL BACK.
--- NOTE | 2019-07-24 17:30 | NUR ---
SPOKE TO DR. Filippo ANDREWS MD AWARE OF PT ACCEPTANCE AND THE APPEAL STATUS.
--- NOTE | 2019-07-24 17:44 | NUR ---
CALLED AND SPOKE TO JIM WITH [facility] AND SET UP RENAL CASE MANAGER TIME FOR 2030.
--- NOTE | 2019-07-24 18:35 | NUR ---
ATTEMPT TO CALL [facility] FOR REPORT. LINE IS BUSY AT THIS TIME. WILL ATTEMPT TO CALL BACK.
--- NOTE | 2019-07-24 18:44 | NUR ---
ATTEMPT TO CALL [facility] FOR REPORT. LINE IS BUSY AT THIS TIME. WILL ATTEMPT TO CALL BACK.
--- NOTE | 2019-07-24 18:51 | NUR ---
ATTEMPT TO CALL [facility] FOR REPORT. LINE IS BUSY AT THIS TIME OR THE PHONE NUMBER IS NOT WORKING. WILL ENDORSE TO NIGHT RN.
--- NOTE | 2019-07-24 18:53 | NUR ---
SAWING AND ASSEMBLY SUPERVISOR IS AWARE OF ATTEMPTS OF CALLING [facility]. WILL CALL PBX.
--- NOTE | 2019-07-24 18:55 | NUR ---
CALLED PBX AND THEY DO NOT HAVE THE PHONE NUMBER. WILL NOTIFY CHARGE.
--- NOTE | 2019-07-24 18:56 | NUR ---
SERVICER COIN MACHINES IS AWARE OF ATTEMPTS OF CALLING [facility] AND PBX DOES NOT HAVE THE NUMBER.
--- NOTE | 2019-07-24 18:57 | NUR ---
ATTEMPT TO CALL [facility] FOR REPORT. LINE IS BUSY AT THIS TIME OR THE PHONE NUMBER IS NOT WORKING. PHONE NUMBER CALLED WAS [phone] WILL ENDORSE TO NIGHT RN.
--- NOTE | 2019-07-24 19:25 | NUR ---
ENDORSED CARE TO NIGHT RNLEIGHTON. RN AWARE OF TRANSFER STATUS.
[2019-07-24 19:52] VITALS: BP 107/59
--- NOTE | 2019-07-24 20:00 | NUR ---
multiple attempts tried to contact [facility] x4 unable to contact. Lines were busy
--- NOTE | 2019-07-24 20:43 | NUR ---
PATIENT DISCHARGED AND TRANSFERRED TO [facility] VIA [facility] VIA STRETCHER. ALL BELONGINGS TAKEN MY PATIENTS DAUGHTER. EDUCATED PATIENT ON DISCHARGE AND TRANSFERRED REMOVED AND TELE BOX REMOVED. REPORT NOT GIVEN TO NURSE IN [facility] PER CHARGE GISELA INFORMED [facility] TO INFORM NURSE TO CALL [facility] FOR REPORT. PAPER WORK CHECKED BY OBSTETRICS/GYNECOLOGY NURSE IMELDA.
--- NOTE | 2019-07-24 20:52 | NUR ---
TELEBOX SENT. CALLED TELE MONITOR TO INFORM THEM.
--- NOTE | 2019-07-24 21:20 | NUR ---
attempted again to call [facility] to give report no answer. Network Control Technician imelda aware of no report given during transfer.
--- NOTE | 2019-07-26 14:23 | NUR ---
steel construction worker 07/24/19 I called Geena SAINI and let her know that [facility] appeal was denied. Patient and family received a call from [facility] stating they lost appeal. Patients daughter Pratima is requested that patient go to [facility]. I called Kadie at [facility] and she still accepted patient, but changed the room to 37A. KTETY was put on will call and Geena SAINI was notifed. Pratima verbalized understanding and agreed to discharge plan to [facility]. Addendum: 07/26/19 at 1426 by Pratibha LONG Amended: Links added.
== END 2019-07-24 20:40 | DRG 917 ==
LOC: ER 11:39 → EDBD 11:39 → TELE 11:40 → ICU WEST 17:28 → DOU IN ICU 07-20 21:07 → TELE-WESTW 07-22 14:50
PROVIDERS: ADMIT Nurse Practitioner Acute Care; ATTEND Internal Medicine
PROC: 5A1955Z Respiratory Ventilation, Greater than 96 Consecutive Hours (ICD-10-PCS; principal; 2019-07-13)
PROC: 0BH17EZ Insertion of Endotracheal Airway into Trachea, Via Natural or Artificial Opening (ICD-10-PCS; 2019-07-13)
PROC: 04HY32Z Insertion of Monitoring Device into Lower Artery, Percutaneous Approach (ICD-10-PCS; 2019-07-14)
DX: T43.222A Poisoning by selective serotonin reuptake inhibitors, intentional self-harm, initial encounter (principal); J96.01 Acute respiratory failure with hypoxia; N17.0 Acute kidney failure with tubular necrosis; G93.41 Metabolic encephalopathy; E44.0 Moderate protein-calorie malnutrition; R64 Cachexia; Z68.1 Body mass index [BMI] 19.9 or less, adult; N13.30 Unspecified hydronephrosis; I13.0 Hypertensive heart and chronic kidney disease with heart failure and stage 1 through stage 4 chronic kidney disease, or unspecified chronic kidney disease; E87.0 Hyperosmolality and hypernatremia; N18.3 Chronic kidney disease, stage 3 (moderate); F32.9 Major depressive disorder, single episode, unspecified; E87.6 Hypokalemia; I70.0 Atherosclerosis of aorta; D64.9 Anemia, unspecified; I67.2 Cerebral atherosclerosis; E83.42 Hypomagnesemia; I95.9 Hypotension, unspecified; E86.0 Dehydration; I48.91 Unspecified atrial fibrillation; D72.829 Elevated white blood cell count, unspecified; N28.1 Cyst of kidney, acquired; F43.21 Adjustment disorder with depressed mood; R00.1 Bradycardia, unspecified; I50.9 Heart failure, unspecified; M19.90 Unspecified osteoarthritis, unspecified site; Z80.3 Family history of malignant neoplasm of breast; Z88.0 Allergy status to penicillin; Y92.89 Other specified places as the place of occurrence of the external cause; Z79.01 Long term (current) use of anticoagulants; Z82.49 Family history of ischemic heart disease and other diseases of the circulatory system; Z79.899 Other long term (current) drug therapy
CPT/HCPCS: 31500; 36415; 36556; 36600; 70450; 71045; 76775; 80048; 80053; 80162; 80307; 80320; 80329; 81001; 82550; 82570; 82805; 83605; 83735; 84132; 84300; 84484; 85007; 85025; 85027; 85610; 85730; 87070; 87081; 87086; 87205; 92610; 93005; 93306; 94002; 94003; 94640; 96361; 96365; 96367; 97110; 97116; 97530; 99291; A4618; G0378; J0330; J2250; J3480; J3490; J7060

== ENCOUNTER 2019-09-16 16:57 | Inpatient (IN) | payer OTHER ==
[~2019-09-16] VITALS: Ht 149.9 cm; Wt 43.4 kg
[~2019-09-16 16:57] MED LIST: ALEN1TAB32 PO; APIX2.5T PO; ATEN-60 PO; ATEN25TA PO; ATOR20TA50 PO; CITA10TA59 PO; DOXY-346 PO; GABA100C9 PO; GABA300C10 PO; MELA3TAB27 PO; OME20T PO; OXYB10TA14 PO; [UNRECOGNIZED DRUG - CODE] IV; [UNRECOGNIZED DRUG - CODE] PO
[2019-09-16 18:10] LABS: Basophils # (auto) 0.1 uL; Basophils % (auto) 0.5 % (0.0-2.0); Eosinophils # (auto) 0 uL; Hematocrit 33.3 % (36.0-46.0); Hemoglobin 11.1 g/dL (12.2-16.2); Lymphocytes # (auto) 1.1 uL; Lymphocytes % (auto) 3.7 % (10.0-50.0); Mean Corpuscular Hemoglobin 30.7 pg (28.0-32.0); Mean Corpuscular Hgb Conc. 33.3 g/dL (32.0-36.0); Mean Corpuscular Volume 92.5 fL (80.0-100.0); Monocytes # (auto) 1.2 uL; Monocytes % (auto) 4.1 % (0.0-12.0); Neutrophils # (auto) 26.5 uL; Neutrophils % (auto) 91.7 % (37.0-80.0); Platelet Count (auto) 403 10^3/uL (140-450); Red Cell Distribution Width 14.9 % (11.8-14.3); White Blood Cell 28.9 10^3/uL (4.4-10.8)
[2019-09-16 18:30] LABS: Alanine Aminotransferase 6 U/L (13-56); Albumin 1.7 g/dL (3.4-5.0); Anion Gap 11 (5-15); Aspartate Aminotransferase 20 U/L (15-37); Blood Urea Nitrogen 40 mg/dL (7-18); Calcium 8.3 mg/dL (8.5-10.1); Carbon Dioxide 24 mmol/L (21-32); Chloride 98 mmol/L (98-107); GFR African American 27 mL/min; GFR Non-African American 22 mL/min; Glucose 99 mg/dL (74-106); Potassium 4.6 mmol/L (3.5-5.1); Sodium 133 mmol/L (136-145)
[2019-09-16 18:37] LABS: Alkaline Phosphatase 87 U/L (45-117); Bilirubin, Total 0.3 mg/dL (0.2-1.0); Total Protein 6.5 g/dL (6.4-8.2)
[2019-09-16] MEDS ORDERED: cefTRIAXone 1GM/50ML D5W 50 ML IV ONE (19:45)
[2019-09-16] MEDS ORDERED: VANCOMYCIN PER PHARMACY 0 MG IV SCH (19:45)
[2019-09-16] MEDS ORDERED: VANCOMYCIN 1GM/250ML 250 ML IV ONE (20:00)
[2019-09-16 21:14] LABS: Urine Bacteria MANY /hpf (None Seen); Urine Blood 1+ /uL (Negative); Urine Mucus FEW (None Seen); Urine Specific Gravity 1.015 (1.001-1.035); Urine WBC 764 /hpf (0 - 5); Urine WBC Clumps PRESENT /hpf (None Seen)
[2019-09-16 23:58] LABS: INR 1.17 (0.9-1.15); Partial Thromboplastin Time 47.1 sec (23.64-32.05)
[2019-09-17] VITALS (7 sets, daily range): BP systolic 93–99; BP diastolic 52–69
[2019-09-17] MEDS ORDERED: SODIUM CHLORIDE 0.9% 500 ML IV ONE (01:15)
[2019-09-17] MEDS ORDERED: TEMAZEPAM 15 MG CAP PO PRN (01:15)
[2019-09-17] MEDS ORDERED: VANCOMYCIN PER PHARMACY 0 MG IV SCH (01:15)
[2019-09-17] MEDS ORDERED: MORPHINE SULF INJ 2 MG/ML SYRINGE 1ML IV PRN (01:15)
[2019-09-17] MEDS ORDERED: ALBUTEROL SULF 2.5 MG/0.5ML(0.5%) NEB SOLN NEB PRN (01:15)
[2019-09-17] MEDS ORDERED: ACETAMINOPHEN 325 MG TAB PO PRN (01:15)
[2019-09-17] MEDS ORDERED: NITROGLYCERIN 0.4 MG SL TAB SL PRN (01:15)
--- NOTE | 2019-09-17 03:20 | NUR ---
Admit to [facility] admitted to [facility] via gurney on desk monitor, and portable 02. Patient walked to bed with 2-person assist, connected to unit monitoring and oxygen, and weighed by bedscale. Patient oriented to Stephy dwyer RN, unit, room, bed, and unit policies regarding patient care and visiting hours. All questions and concerns addressed, patient verbalized understanding.
[2019-09-17] MEDS: SODIUM CHLORIDE 0.9% 1,000 ML IV SCH ×3 (05:30→22:40)
--- NOTE | 2019-09-17 06:30 | NUR ---
PT. ASSESSED FOR PRN. MN. TX. , NO RESP. DISTRESS OR SOB NOTED. PT. STATES SHE DOES NOT WANT TX. AT THIS TIME. BS. ARE CLEAR AND DIMINISHED AT THE BASES, HR=76,RR=14,SP02=95% ON 3LPM. PT. STATES SHE NEEDS TO USE THE PARVEEN STILES. NOTIFIED. PRN. TX. NOT GIVEN AT THIS TIME. PT. INSTRUCTED TO CALL IF NEEDED.
--- NOTE | 2019-09-17 07:30 | NUR ---
RECEIVED PATIENT SEMI FOWLERS IN BED, AWAKEN TO NAME BEING CALLED, A/O TIMES 4, O2 AT 3L BY N/C, STATES SHE USES THE BSC, IV TO THE RT WRIST INFILTRATED AND REMOVED, STATES SHE HAS SOME PAIN TO HER RT SIDE WHEN SHE MOVES, BUT DOESN'T WANT ANYTHING,
--- NOTE | 2019-09-17 08:31 | NUR ---
SITTING UP IN BED EATING HER BREAKFAST FEEDING HERSELF, STATES SHE HAS NO APPETITE
[2019-09-17] MEDS ORDERED: cefTRIAXone 1GM/50ML D5W 50 ML IV SCH (09:00)
[2019-09-17 09:09] LABS: Albumin 1.4 g/dL (3.4-5.0); Calcium 7.7 mg/dL (8.5-10.1); Potassium 4.5 mmol/L (3.5-5.1)
[2019-09-17 09:11] LABS: BUN/Creatinine Ratio 20.9; Bilirubin, Total 0.3 mg/dL (0.2-1.0); Total Protein 5.6 g/dL (6.4-8.2)
--- NOTE | 2019-09-17 09:20 | NUR ---
22G SALINE LOCK PLACED TO THE LFA USING STERILE TECHNIQUE 1/ ATTEMPTS
[2019-09-17] MEDS: PANTOPRAZOLE 40 MG TAB PO SCH (09:46)
--- NOTE | 2019-09-17 09:46 | NUR ---
DISCUSSED MEDICATIONS WITH THE PATIENT REGARDING THE DOSAGE, USAGE AND THE SIDE EFFECTS, VERBALIZED THAT SHE UNDERSTOOD AND MEDS GIVEN ORDERED EXCEPT CELEXA AND ATENOLOL SHE REFUSED
[2019-09-17] MEDS: APIXABAN 2.5 MG TAB PO SCH ×2 (09:47→22:50)
[2019-09-17] MEDS: CITALOPRAM HYDROBR 20 MG TAB PO SCH (09:47)
[2019-09-17] MEDS: ATENOLOL 50 MG TAB PO SCH (09:47)
[2019-09-17] MEDS: DIGOXIN 0.125 MG TAB PO SCH (09:47)
[2019-09-17 10:08] LABS: Hematocrit 34.3 % (36.0-46.0); Hemoglobin 11.1 g/dL (12.2-16.2); Mean Corpuscular Hemoglobin 30.1 pg (28.0-32.0); Mean Corpuscular Hgb Conc. 32.2 g/dL (32.0-36.0); Mean Corpuscular Volume 93.6 fL (80.0-100.0); Platelet Count (auto) 409 10^3/uL (140-450); Red Blood Cells 3.67 10^6/uL (4.0-5.20); Red Cell Distribution Width 15.1 % (11.8-14.3); White Blood Cell 27.7 10^3/uL (4.4-10.8)
--- NOTE | 2019-09-17 10:10 | NUR ---
SPOKE TO HER DAUGHTER ON THE PHONE
[2019-09-17 10:18] LABS: Band Neutrophils % (manual) 0; Basophils % (manual) 0 (0.0-2.0); Blast Cells 0; Eosinophils % (manual) 0 (0-7); Metamyelocytes % 0; Myelocytes % 0; Promyelocytes % 0; Reactive Lymphocytes 0
--- NOTE | 2019-09-17 10:57 | NUR ---
LYING IN BED WITH EYES CLOSED
--- NOTE | 2019-09-17 11:29 | NUR ---
DAUGHTER IN TO SEE THE PATIENT
[2019-09-17 11:44] LABS: Lymphocytes % (manual) 6 (10.0-50.0); Monocytes % (manual) 2 (0-12)
--- NOTE | 2019-09-17 12:24 | NUR ---
DAUGHTER AT THE BEDSIDE , TALKING WITH THE PATIENT, PATIENT HAS NO COMPLAINS
--- NOTE | 2019-09-17 12:40 | NUR ---
DR SELF HERE TO SEE THE PAIETHAN
--- NOTE | 2019-09-17 13:10 | NUR ---
THORACENTESIS DONE REMOVED ABOUT 100ML OF THICK GREYISH YELLOW THICK FLUID AND SENT TO THE LAB
--- NOTE | 2019-09-17 13:30 | NUR ---
CHEST TUBE INSERTED 120ML OF BLOODY FLUID REMOVED WHEN INSERTED
--- NOTE | 2019-09-17 13:40 | NUR ---
MEDICATED FOR PAIN TO THE CHEST WITH NORCO 10/10
[2019-09-17] MEDS: HYDROcodone-ACET 5/325MG TAB PO PRN (13:46)
--- NOTE | 2019-09-17 13:50 | NUR ---
CHEST X-RAY DONE
[2019-09-17] MEDS ORDERED: CLINDAMYCIN 600MG IV 50 ML IV SCH (14:00)
--- NOTE | 2019-09-17 16:25 | NUR ---
UP TO THE BSC AND URINATED, WITH HELP ONLY TO HOLD THE CHEST TUBE AND OTHER WIRES
--- NOTE | 2019-09-17 16:55 | NUR ---
SITTING UP IN BED WITH EYES CLOSED
--- NOTE | 2019-09-17 17:00 | NUR ---
RECHECKED TEMP 98'3
--- NOTE | 2019-09-17 18:00 | NUR ---
DR MCKINNEY IN TO SEE THE PATIENT
--- NOTE | 2019-09-17 18:29 | NUR ---
RT NOTE PRN ASSESSMENT DONE NOT INDICATED AT THIS TIME WILL CONTINUE TO MONITOR
--- NOTE | 2019-09-17 18:30 | NUR ---
PATIENT SITTING UP IN BED, WITH EYES CLOSED, NS INFUSING INTO THE LFA 22G AT 75ML/HR BY THE IV PUMP, O2 AT 3L BY N/C, USES THE BSC, CHEST TUBE TO SUCTION, NOT COMPLAINING OF ANY PAIN AT THIS TIME, WILL CONTINUE TO MONITOR AND GIVE REPORT TO THE NEXT SHIFT
--- NOTE | 2019-09-17 18:45 | NUR ---
PAGED DR SELF TO MAKE HIM AWARE OF THE RESULTS OF THE CHEST X-RAY WHICH SAYS IT IS KINKED, ASK HIM ABOUT IT EARLIER AND HE STATED IT WAS JUST IN TOO DEEP
[2019-09-17] MEDS ORDERED: LEVOFLOXACIN 500MG 100 ML IV ONE (19:45)
--- NOTE | 2019-09-17 19:55 | NUR ---
OPEN NOTES RECEIVED PATIENT FROM RN BEATA PATIENT IS AWAKE AND ALERT. NO COMPLAINS OF PAIN AT THE MOMENT. PATIENT JUST HAD CHEST TUBE PLACED AT THE RIGHT UPPER LATERAL CHEST AREA. CONNECTED TO ATRIUM DRAINAGE BOTTLE AT -20CM H20 DRAINING TO SEROSANGUINEOUS OUTPUT, DRESSING DRY AND INTACT. PATIENT ON NC 3L/MIN, SPO2 98%, RR 12-16/MIN VS STABLE. FULL ASSESSMENT DONE - REFER INTERVENTIONS
[2019-09-17] MEDS ORDERED: VANCOMYCIN 500 MG in D5W 5% 100 ML IV ONE (21:00)
[2019-09-17] MEDS: ONDANSETRON HCL 4 MG/2 ML VIAL IV PRN (22:45)
[2019-09-17] MEDS: ATORVASTATIN 20 MG TAB PO SCH (22:50)
--- NOTE | 2019-09-17 22:50 | NUR ---
NAUSEA PATIENT IS NAUSEATED - PROPPED UP, EMESIS BAG GIVEN. IV ZOFRAN GIVEN ORDERED. HELD PO MEDICATIONS
--- NOTE | 2019-09-17 23:20 | NUR ---
PATIENT TO BROUGHT TO CT SCAN
--- NOTE | 2019-09-17 23:40 | NUR ---
BACK FROM CT SCAN CONNECTED TO CARDIAC MONITORING
[2019-09-18] VITALS: BP 97/65
--- NOTE | 2019-09-18 02:15 | NUR ---
PAIN PATIENT COMPLAINS OF PAIN AT THE CHEST TUBE SITE 10/ PATIENT WANTS TO STAND UP TO URINATE WELL. WILL MEDICATE FOR PAIN
--- NOTE | 2019-09-18 03:00 | NUR ---
PAIN RE-ASSESS PATIENT RESTING IN BED, EYES CLOSED. VS STABLE. LOOKED COMFORTABLE. CHEST TUBE INTACT, NO AIR LEAK OR CREPITUS NOTED WITH MINIMAL SEROUS OUTPUT WILL CONTINUE TO MONITOR
[2019-09-18] MEDS: HYDROcodone-ACET 5/325MG TAB PO PRN ×2 (03:14→14:49)
[2019-09-18 04:00] VITALS: BP 93/54
[2019-09-18 05:56] LABS: Hematocrit 33.9 % (36.0-46.0); Hemoglobin 11.1 g/dL (12.2-16.2); Mean Corpuscular Hemoglobin 30.7 pg (28.0-32.0); Mean Corpuscular Hgb Conc. 32.7 g/dL (32.0-36.0); Mean Corpuscular Volume 93.9 fL (80.0-100.0); Platelet Count (auto) 417 10^3/uL (140-450); Red Blood Cells 3.61 10^6/uL (4.0-5.20); White Blood Cell 25.6 10^3/uL (4.4-10.8)
[2019-09-18 06:07] LABS: Basophils % (manual) 0 (0.0-2.0); Blast Cells 0; Eosinophils % (manual) 0 (0-7); Metamyelocytes % 0; Myelocytes % 0; Promyelocytes % 0; Reactive Lymphocytes 0
[2019-09-18 06:14] LABS: INR 1.13 (0.9-1.15); Partial Thromboplastin Time 42.8 sec (23.64-32.05)
[2019-09-18 06:20] LABS: Albumin 1.3 g/dL (3.4-5.0); Calcium 7.6 mg/dL (8.5-10.1); Magnesium 2.1 mg/dL (1.6-2.6); Potassium 4.5 mmol/L (3.5-5.1)
[2019-09-18 06:24] LABS: BUN/Creatinine Ratio 22.9; Bilirubin, Total 0.3 mg/dL (0.2-1.0)
--- NOTE | 2019-09-18 06:30 | NUR ---
OUT OF BED PATIENT WOKE UP AND CALLED. SHE SAID SHE FEELS UNEASY, WANTS TO STAND UP ASSISTED PATIENT TO BEDSIDE CHAIR - SHE SAID SHE FELT BETTER CALL J[facility] WITH PATIENT INSTRUCTED PATIENT TO CALL, DON'T STAND UP ON HER OWN SHE VERBALIZED UNDERSTANDING
--- NOTE | 2019-09-18 06:40 | NUR ---
BLOOD SUGAR CRITICAL LOW LAB STAFF CALLED TO INFORM BLOOD SUGAR IN LAB TEST = 43 WILL RE-CHECK BY FINGER PRICK
--- NOTE | 2019-09-18 06:44 | NUR ---
BLOOD SUGAR RE-CHECKED PERIPHERALLY BLOOD SUGAR = 33 Addendum: 09/18/19 at 0645 by Rosanna Colney RN APPLE JUICE GIVEN
--- NOTE | 2019-09-18 06:50 | NUR ---
Respiratory note: PT ASSESSED FOR PRN MED NEB TX. PT IS SITTING UP IN CHAIR. NO RESP DISTRESS OBSERVED. SPO2 95% ON 3L, HR 110, RR 20. PT AWARE TO HAVE RT PAGED IF ANY RESP DISTRESS OCCURS.
[2019-09-18 06:53] LABS: Band Neutrophils % (manual) 4; Lymphocytes % (manual) 3 (10.0-50.0); Monocytes % (manual) 2 (0-12)
[2019-09-18 08:00] VITALS: BP 93/64
--- NOTE | 2019-09-18 08:00 | NUR ---
Opening Shift Note Assumed care of patient, awake and alert, sitting on the chair. No S/S of distress/SOB or pain, on O2 NC 3 LPM, has right ICD, connected to suction, no fluctuated associated with breathing, no air leak. Instructed on POC and to call for assist PRN, will continue to monitor for changes Q1hr and PRN.
--- NOTE | 2019-09-18 08:05 | NUR ---
Blood sugar 54, provided orange juice at this time. Patient still nauseated after eating. Will continue to monitor and care.
--- NOTE | 2019-09-18 08:30 | NUR ---
Dr. Toribio at the bedside, seen and examined patient at this time. Received new orders, re start Clindamycin for Loculated pleural fluid (gram +), MD made aware about low blood sugar level, changed IV to D5W 75 ml/hr, CT chest without contrast. Patient made aware.
[2019-09-18] MEDS ORDERED: CLINDAMYCIN 600MG IV 50 ML IV ONE (09:00)
[2019-09-18] MEDS: DIGOXIN 0.125 MG TAB PO SCH (09:04)
[2019-09-18] MEDS: APIXABAN 2.5 MG TAB PO SCH ×3 (09:04→21:59)
[2019-09-18] MEDS: ONDANSETRON HCL 4 MG/2 ML VIAL IV PRN (09:04)
[2019-09-18] MEDS: PANTOPRAZOLE 40 MG TAB PO SCH (09:04)
[2019-09-18] MEDS: LEVOFLOXACIN 250MG 50 ML IV SCH (09:05)
[2019-09-18] MEDS: CITALOPRAM HYDROBR 20 MG TAB PO SCH (09:05)
[2019-09-18] MEDS: D5W 5% 1,000 ML IV SCH ×2 (09:05→21:59)
--- NOTE | 2019-09-18 09:15 | NUR ---
Patient went to Radiology for CT.
--- NOTE | 2019-09-18 09:30 | NUR ---
Patient came back from CT.
--- NOTE | 2019-09-18 10:00 | NUR ---
Sent Cytology request to Lab.
--- NOTE | 2019-09-18 10:05 | NUR ---
Sammie (daughter) at the bedside, updated plan of care to her, made aware, will continue to monitor and care.
[2019-09-18] MEDS: ATENOLOL 50 MG TAB PO SCH (11:28)
--- NOTE | 2019-09-18 11:30 | NUR ---
vs pt hr 57 bp 89/49 giving prescribed fluids to bring up bp. will monitor Addendum: 09/19/19 at 0630 by ARMIN MATAMOROS RN RN [id number]
--- NOTE | 2019-09-18 11:33 | NUR ---
Blood sugar 98, patient has no complaining of N/V noted, provided apple juice, no aspiration noted.
[2019-09-18 12:00] VITALS: BP 109/64
--- NOTE | 2019-09-18 12:45 | NUR ---
Dr. Clement at the bedside, seen and examined patient at his time, plan of care discussed with patient and Sammie (daughter) also at the bedside. Will continue Eliquis, received new order for Ensure, made aware about low level of blood sugar and changed IV to D5W, will continue to monitor and care, will do VQ scan this afternoon. Patient and Sammie made aware.
--- NOTE | 2019-09-18 13:40 | NUR ---
Patient went to Radiology unit for VQ scan.
[2019-09-18] MEDS: CLINDAMYCIN 600MG IV 50 ML IV SCH ×3 (14:50→22:00)
[2019-09-18 16:00] VITALS: BP 82/49
--- NOTE | 2019-09-18 16:08 | NUR ---
BP 82/49 mmHg, already double check from both arms, still low blood BP, HR 59-62 /min, still awake and alert. Called and left the message to Dr. Gupta . Waiting a call back from .
--- NOTE | 2019-09-18 16:20 | NUR ---
Received a call from Dr. Edd MD made aware for the consultation, recommended for Cardiology consult.
[2019-09-18] MEDS ORDERED: SODIUM CHLORIDE 0.9% 1,000 ML IV ONE (16:30)
--- NOTE | 2019-09-18 16:30 | NUR ---
Received a call back from Dr. Alonso MD made aware, no F/C at this time, received order for NS 1000 ml iv bolus and MD made aware per Dr. Puga recommendation, received order for Collection Supervisor consult (Dr. Thompson), will call and updated BP after NS completed.
--- NOTE | 2019-09-18 16:50 | NUR ---
IV insertion IV access obtained, via clean sterile technique by inserting 20 gauge catheter at left FA after 2 attempts. IV secured properly. No trauma to site. Patient tolerated procedure well.
--- NOTE | 2019-09-18 17:50 | NUR ---
BP 80/42 mmHg, after NS 1000 ml given, called and left the message to Dr. Gupta, waiting for MD to call back.
[2019-09-18] MEDS: Ensure HIGH Protein Chocolate 8oz Bottle PO SCH (17:52)
--- NOTE | 2019-09-18 18:00 | NUR ---
Received a call back from Dr. Chau, made aware that BP still 80/40 mmHg, HR 55-57/min, made aware about urine culture growth with E. Coli, will continue Vancomycin AND CLINDAMYCIN, pharmacist made aware. made aware that urine output 250 ml for morning shift, received orders for bolus 2 more Liters of NS, if SBP still <90, start Levophed and transfer to ICU and also call Dr. Toribio for central line insertion. Addendum: 09/18/19 at 1817 by SOPHIA CARTY RN RN BEULAH made aware.
[2019-09-18] MEDS ORDERED: SODIUM CHLORIDE 0.9% 2,000 ML IV ONE (18:15)
--- NOTE | 2019-09-18 18:28 | NUR ---
Respiratory note: ASSESSED PT FOR PRN MED NEB AT THIS TIME, PT DENIES SOB AT THIS TIME, NO RESP DISTRESS NOTED, NO TX INDICATED, PULSE OX 96% ON 3L NC, HR 63, RR 18, BILATERAL BS DIMINISHED
[2019-09-18 20:00] VITALS: BP_SYST 121; BP_SYST 86; BP_DIAS 39; BP_DIAS 79
[2019-09-18] MEDS: ATORVASTATIN 20 MG TAB PO SCH ×2 (21:40→21:59)
--- NOTE | 2019-09-18 23:30 | NUR ---
vs pt hr 57 bp 89/49 giving prescribed fluids to bring up bp. will monitor
[2019-09-19] VITALS (55 sets, daily range): BP systolic 89–157; BP diastolic 42–119
--- NOTE | 2019-09-19 03:00 | NUR ---
hygiene hygiene provided, partial bed bath given. new lenins put in place
[2019-09-19] MEDS ORDERED: NOREPINEPHRINE 8 MG/250ML KIT 250 ML IV ONE (04:10)
--- NOTE | 2019-09-19 04:20 | NUR ---
levo started pt hr 31 and bp 70/30. communication order stated to start pt on levo if systolic bp remained under after fluids were given. fluids given and bp remained under 90. ekg preformed.
--- NOTE | 2019-09-19 05:00 | NUR ---
pt educated on her being transferred to the icu
[2019-09-19 05:51] LABS: Basophils # (auto) 0 uL; Basophils % (auto) 0.2 % (0.0-2.0); Eosinophils # (auto) 0 uL; Eosinophils % (auto) 0.1 % (0.0-7.0); Hematocrit 33.9 % (36.0-46.0); Hemoglobin 11.2 g/dL (12.2-16.2); Lymphocytes # (auto) 0.7 uL; Mean Corpuscular Hemoglobin 30.8 pg (28.0-32.0); Mean Corpuscular Hgb Conc. 32.9 g/dL (32.0-36.0); Mean Corpuscular Volume 93.6 fL (80.0-100.0); Monocytes % (auto) 3.9 % (0.0-12.0); Neutrophils # (auto) 22.8 uL; Neutrophils % (auto) 92.8 % (37.0-80.0); Platelet Count (auto) 405 10^3/uL (140-450); Red Blood Cells 3.62 10^6/uL (4.0-5.20); Red Cell Distribution Width 15.5 % (11.8-14.3); White Blood Cell 24.6 10^3/uL (4.4-10.8)
[2019-09-19] MEDS: CLINDAMYCIN 600MG IV 50 ML IV SCH ×3 (06:00→22:30)
--- NOTE | 2019-09-19 06:05 | NUR ---
PATIENT ARRIVED FROM [facility] WITH X1 RN AND X1 TECH; PT. PLACED ON BEDSIDE MONITOR; PT. HR= 30'S WITH PT. ON LEVOPHED GTT; CALLED AND S/W DR. JUNE AND CHANGED TO DOPAMINE GTT; PT. MOANING " LET ME , JUST LET ME ," REASSURED PT. THAT WE ARE TAKING GOOD CARE OF HER AND SHE IS DOING BETTER; OTHER VITAL SIGNS ARE WNL.;DOPAMINE GTT STARTED AT 5MCG; AND WILL CONT. TO MONITOR.
[2019-09-19 06:07] LABS: Albumin 1.2 g/dL (3.4-5.0); Calcium 7.3 mg/dL (8.5-10.1); INR 1.18 (0.9-1.15); Magnesium 1.6 mg/dL (1.6-2.6); Partial Thromboplastin Time 47.6 sec (23.64-32.05)
[2019-09-19 06:12] LABS: BUN/Creatinine Ratio 22.7; Bilirubin, Direct 0.2 mg/dL (0-0.2); Bilirubin, Total 0.4 mg/dL (0.2-1.0); Total Protein 5.6 g/dL (6.4-8.2)
[2019-09-19] MEDS ORDERED: DOPamine 1600MCG/ML D5W 250 ML IV ONE (06:16)
[2019-09-19] MEDS: DOPamine 1600MCG/ML D5W 250 ML IV SCH ×2 (06:18→19:22)
--- NOTE | 2019-09-19 06:19 | NUR ---
MD NOTIFIED OF CHANGE OF STATUS, ORDER RECEIVED FROM DR. DAVILA TO START DOPAMINE GTT. PT HR IN THE 30'S AT THIS TIME.
--- NOTE | 2019-09-19 06:23 | NUR ---
report given to claudia lebron care endorsed
--- NOTE | 2019-09-19 06:52 | NUR ---
S/W DR. MORGAN RE: MAGNESIUM LEVEL= 1.6 AND HE RX'D X4 GRAMS MAGNESIUM.
--- NOTE | 2019-09-19 07:10 | NUR ---
OPENING NOTE SHIFT REPORT RECEIVED AND ASSUMED CARE OF PT FROM BARB SAINI
--- NOTE | 2019-09-19 07:30 | NUR ---
OPENING NOTE SHIFT REPORT RECEIVED AND ASSUMED CARE OF PT FROM BARB SAINI
[2019-09-19] MEDS: MAGNESIUM SULFATE 1GM/100ML 100 ML IV SCH ×4 (08:00→11:36)
--- NOTE | 2019-09-19 08:17 | NUR ---
S/W DAUGHTER JOHN, AND UPDATED ON PLAN OF CARE AND REASON FOR TRANSFER TO ICU; DAUGHTER WILL BE IN IN A LITTLE BIT.
[2019-09-19] MEDS: Ensure HIGH Protein Chocolate 8oz Bottle PO SCH ×3 (09:02→18:20)
[2019-09-19] MEDS ORDERED: VANCOMYCIN 500 MG in D5W 5% 100 ML IV SCH (09:45)
[2019-09-19] MEDS: D5W 5% 1,000 ML IV SCH (09:52)
[2019-09-19] MEDS ORDERED: VANCOMYCIN 750mg/250ml 250 ML IV SCH (10:00)
[2019-09-19] MEDS: CITALOPRAM HYDROBR 20 MG TAB PO SCH ×2 (10:00→10:25)
[2019-09-19] MEDS: APIXABAN 2.5 MG TAB PO SCH ×2 (10:24→22:00)
[2019-09-19] MEDS: PANTOPRAZOLE 40 MG TAB PO SCH (10:24)
[2019-09-19] MEDS: LEVOFLOXACIN 250MG 50 ML IV SCH (10:24)
--- NOTE | 2019-09-19 11:00 | NUR ---
DR. Sofiya MCKINNEY CALLED ORDERS RECEIVED
--- NOTE | 2019-09-19 11:00 | NUR ---
DR. VENTURA PAGED REGARDING DIGOXIN 3.5 LEVEL
[2019-09-19] MEDS ORDERED: SODIUM CHLORIDE 0.9% 1,000 ML IV ONE (11:30)
[2019-09-19] MEDS ORDERED: IOHEXOL 350 MG/ML 100ML IJ ONE (12:34)
[2019-09-19] MEDS ORDERED: LIDOCAINE 1% (LOCAL ANESTH.) PF 5ml SDV ONE ×2 (12:44→14:00)
--- NOTE | 2019-09-19 13:00 | NUR ---
TELEPSYCH ON COMPUTER SPEAKING TO PT
[2019-09-19] MEDS ORDERED: MORPHINE SULF INJ 2 MG/ML SYRINGE 1ML ONE (13:04)
[2019-09-19] MEDS ORDERED: MORPHINE SULF INJ 2 MG/ML SYRINGE 1ML IV ONE (13:15)
--- NOTE | 2019-09-19 13:30 | NUR ---
PT DOES NOT REPRESENT WITH SUICIDAL IDEATION AT THIS TIME. WILL CONTINUE TO MONITOR
[2019-09-19] MEDS ORDERED: LORazepam 2MG/ML-1ML VIAL IM ONE (13:45)
[2019-09-19] MEDS ORDERED: LORazepam 2MG/ML-1ML VIAL ONE (13:47)
--- NOTE | 2019-09-19 14:45 | NUR ---
DR. VENTURA GAVE ORDERS FOR DIGOXIN 3.5
--- NOTE | 2019-09-19 15:00 | NUR ---
OK TO DO CT TOMORROW 09/20/[address] NICE STATED HE SPOKE WITH DR. Sofiya ROMO AND OK WITH CT FOR TOMORROW DUE TO PATIENT'S LOW HEART RATE AND RECENT CHEST TUBE PLACEMENT
[2019-09-19] MEDS ORDERED: DIGOXIN IMMUNEFAB PER PHARMACY 0 ML IV ONE (18:00)
[2019-09-19] MEDS ORDERED: DIGOXIN IMMUNE FAB (OVINE) 80 MG in SODIUM CHL 0.9% 50 ML IV ONE (18:15)
--- NOTE | 2019-09-19 19:10 | NUR ---
CLOSING NOTE SHIFT REPORT GIVE BACK AND CARE ENDORSED TO BARB SAINI
--- NOTE | 2019-09-19 21:00 | NUR ---
Respiratory note: PT ASSESSED FOR PRN MED NEB TX. HR 81, RR 20, SPO2 96% ON 3L NC. NO SIGNS OF ANY RESPIRATORY DISTRESS NOTED. ADVISED PT TO CALL IF TX IS NEEDED. RT NAME AND PAGER NUMBER WRITTEN ON BOARD.
[2019-09-19] MEDS: ATORVASTATIN 20 MG TAB PO SCH (22:00)
[2019-09-19 22:13] LABS: Basophils # (auto) 0.1 uL; Basophils % (auto) 0.3 % (0.0-2.0); Eosinophils # (auto) 0 uL; Eosinophils % (auto) 0.2 % (0.0-7.0); Hematocrit 35.5 % (36.0-46.0); Hemoglobin 11.7 g/dL (12.2-16.2); Lymphocytes # (auto) 0.8 uL; Lymphocytes % (auto) 3.7 % (10.0-50.0); Mean Corpuscular Hemoglobin 31.1 pg (28.0-32.0); Mean Corpuscular Volume 94.2 fL (80.0-100.0); Monocytes # (auto) 0.9 uL; Neutrophils # (auto) 20.6 uL; Neutrophils % (auto) 91.8 % (37.0-80.0); Platelet Count (auto) 373 10^3/uL (140-450); Red Blood Cells 3.76 10^6/uL (4.0-5.20); Red Cell Distribution Width 15.1 % (11.8-14.3); White Blood Cell 22.4 10^3/uL (4.4-10.8)
[2019-09-19 22:29] LABS: INR 1.09 (0.9-1.15); Partial Thromboplastin Time 41.7 sec (23.64-32.05)
[2019-09-19 22:35] LABS: Albumin 1.3 g/dL (3.4-5.0); Calcium 7.5 mg/dL (8.5-10.1); Magnesium 2.5 mg/dL (1.6-2.6); Potassium 3.5 mmol/L (3.5-5.1)
[2019-09-19 22:40] LABS: BUN/Creatinine Ratio 20.4; Bilirubin, Direct 0.2 mg/dL (0-0.2); Bilirubin, Total 0.4 mg/dL (0.2-1.0); Total Protein 6.3 g/dL (6.4-8.2)
[2019-09-20] VITALS (87 sets, daily range): BP systolic 80–174; BP diastolic 41–119
[2019-09-20 04:00] LABS: Basophils # (auto) 0.3 uL; Basophils % (auto) 1.5 % (0.0-2.0); Eosinophils # (auto) 0 uL; Eosinophils % (auto) 0.2 % (0.0-7.0); Hematocrit 35.9 % (36.0-46.0); Hemoglobin 11.5 g/dL (12.2-16.2); Lymphocytes % (auto) 4.3 % (10.0-50.0); Mean Corpuscular Hemoglobin 30.1 pg (28.0-32.0); Mean Corpuscular Hgb Conc. 32.1 g/dL (32.0-36.0); Mean Corpuscular Volume 93.8 fL (80.0-100.0); Monocytes # (auto) 0.9 uL; Monocytes % (auto) 3.8 % (0.0-12.0); Neutrophils # (auto) 21.3 uL; Neutrophils % (auto) 90.2 % (37.0-80.0); Platelet Count (auto) 360 10^3/uL (140-450); Red Blood Cells 3.83 10^6/uL (4.0-5.20); Red Cell Distribution Width 15.4 % (11.8-14.3); White Blood Cell 23.6 10^3/uL (4.4-10.8)
[2019-09-20 04:16] LABS: INR 1.11 (0.9-1.15); Partial Thromboplastin Time 40.8 sec (23.64-32.05)
[2019-09-20 04:29] LABS: Calcium 7.3 mg/dL (8.5-10.1); Potassium 3.5 mmol/L (3.5-5.1)
[2019-09-20 04:34] LABS: Albumin 1.3 g/dL (3.4-5.0); BUN/Creatinine Ratio 20.6; Bilirubin, Direct 0.2 mg/dL (0-0.2); Bilirubin, Total 0.4 mg/dL (0.2-1.0); Magnesium 2.3 mg/dL (1.6-2.6); Total Protein 6.1 g/dL (6.4-8.2)
[2019-09-20] MEDS: CLINDAMYCIN 600MG IV 50 ML IV SCH ×3 (06:00→22:00)
--- NOTE | 2019-09-20 07:30 | NUR ---
REPORT REPORT RECEIVED FROM NIGHT RN. PT RESTLESS AND STATING "I'M WET". PARTIAL LINEN CHANGE DONE AND RIC CARE GIVEN.
--- NOTE | 2019-09-20 07:48 | NUR ---
ASSESSMENT PT AWAKE AND ALERT TO PERSON ONLY. WEAK AND RESTLESS. TURNED FOR COMFORT. LUNGS CLEAR TO THE LEFT AND WITH INSPIRATORY CRACKLES TO THE RIGHT. O2 SAT OF 98% AND RR 14. CHEST TUBE TO RIGHT UPPER BACK WITH DRESSING CLEAN AND DRY. CHEST TUBE CONNECTED TO A[facility]IUM AT 20 CM SUCTION. TELE SR 70. PALPABLE PULSES TO ALL EXTREMITIES WITH PITTING EDEMA NOTED TO HER SACRUM AND HER UPPER THIGHS. ABD SOFT WITH HYPOACTIVE BOWEL SOUNDS. PT INCONTINENT OF YELLOW URINE. 2 BLANCHABLE PINK/RED LINES NOTED ON SACRUM AND OPTIFOAM DRESSING IN PLACE. SOLES OF BOTH FEET NOTED TO BE A BLANCHABLE PINK/RED. BOTH HANDS AND FEET ARE COOL TO THE TOUCH. PT WEARING SOCKS. BRUISE NOTED TO RIGHT UPPER CHEST. TURNED TO THE LEFT. CURRENTLY ON DOPAMINE AT 13 MCG/KG/MIN WITH A BP OF 150/89 AND HR 74.TURNED DOPAMINE TO 12 MCG. IVF OF D5W AT 75 ML/HR. RAILS UP X4 FOR PT SAFETY. CONTINUE TO MONITOR.
[2019-09-20] MEDS: Ensure HIGH Protein Chocolate 8oz Bottle PO SCH ×3 (08:00→18:00)
[2019-09-20] MEDS ORDERED: IOHEXOL 300 MG/ML 100ML BOTTLE IJ ONE (08:14)
[2019-09-20] MEDS ORDERED: IOHEXOL 350 MG/ML 100ML IJ ONE (08:15)
--- NOTE | 2019-09-20 08:58 | NUR ---
Respiratory note: PT ASSESSED FOR PRN MED NEB TX. HR , RR 2, SPO2 96% ON 3L NC. NO SIGNS OF ANY RESPIRATORY DISTRESS NOTED.PATIENT WAS STATING SHE HAD TO USE THE RESTROOM. ADVISED PT TO CALL IF TX IS NEEDED. RT NAME AND PAGER NUMBER WRITTEN ON BOARD.
[2019-09-20] MEDS: PANTOPRAZOLE 40 MG TAB PO SCH (10:00)
[2019-09-20] MEDS: APIXABAN 2.5 MG TAB PO SCH (10:00)
[2019-09-20] MEDS: LEVOFLOXACIN 250MG 50 ML IV SCH (11:01)
--- NOTE | 2019-09-20 11:45 | NUR ---
NUTRITION ASSESSMENT NOTES Please refer to link notes of nutrition screen form filed under the intervention section of the plan of care for further details. Est. Needs: 1300 kcal to 1500 kcal (30-35 kcal/kgBW), 43 gms to 52 gms pro (1.0-1.2 gms/kgBW). Will continue to monitor pertinent labs and reassess nutrient need prn Thank you. Addendum: 09/20/19 at [address] Amended: Links added.
[2019-09-20] MEDS: D5W/SOD CHLO 0.9% 1,000 ML IV SCH (12:01)
--- NOTE | 2019-09-20 13:13 | NUR ---
PICC line consent: Obtained consent for PICC line placement from patient's daughter. Awaiting MD signatures for PICC line placement. Primary RN notified.
--- NOTE | 2019-09-20 16:37 | NUR ---
SWALLOW EVALUATED WITH FAMILY PRESENT. PATIENT HAS DENTURES BUT DID NOT WEAR FOR THIS EVALUATION. PATIENT ABLE TO TOLERATE PUREE DIET TEXTURE WITH THIN LIQUIDS NO OVERT SIGNS OR SYMPTOMS OF ASPIRATION. LARYNGEAL LIFT IS STRONG. FAMILY REPORTS PATIENT HAS HAD POOR APPETITE. PATIENT REPORTS NOTHING SOUNDS GOOD AND THAT SHE DOES NOT WANT TO EAT. NURSING NOTIFIED.
--- NOTE | 2019-09-20 17:35 | NUR ---
BP OF 86/49 WITH DOPAMINE AT 6 MCG. INCREASED TO 7 MCG/10.73 ML/HR.
--- NOTE | 2019-09-20 18:29 | NUR ---
PT USED BEDPAN TO VOID 275 ML CLEAR YELLOW URINE. PT NOTED TO HAVE AN INFILTRATED IV TO THE LFA, WHERE IVF AND DOPAMINE INFUSING. ORDERED NITROGLYCERIN TOPICALLY X1 PER PHARMACY PROTOCOL. WILL DC IV SITE AND START A NEW IV.
[2019-09-20] MEDS ORDERED: NITROGLYCERIN 2% OINT 1GM PKG TD ONE (18:30)
--- NOTE | 2019-09-20 18:40 | NUR ---
PT INCONTINENT OF URINE X 11 AND USED BEDPAN X2 FOR A TOTAL OF 525. NO BM.
--- NOTE | 2019-09-20 19:30 | NUR ---
REPORT REPORT GIVEN TO GEOVANNY KWAN RN
--- NOTE | 2019-09-20 19:30 | NUR ---
Opening notes Assumed care, awake and oriented to self, place and time with no signs of distress, on O2 @ 2L/min, SPO2 98%, IV to the left forearm patent, infusing dopamine drip, D5 NS @ 75 ml/hr, right CT intact, no leakage noted. Bed in lowest position with side rails up, bed alarm on. Will continue care and will re-orient.
[2019-09-20] MEDS: ATORVASTATIN 20 MG TAB PO SCH (21:27)
[2019-09-20] MEDS: DOPamine 1600MCG/ML D5W 250 ML IV SCH (21:27)
--- NOTE | 2019-09-20 22:09 | NUR ---
Respiratory note: PT SEEN AND ASSESSED FOR PRN MED NEB TX AT 2209. TX NOT INDICATED AT THIS TIME, PT DISPLAYING NO SIGNS OF RESPIRATORY DISTRESS. BREATH SOUNDS WERE DIMINISHED BILATERALLY. HR 72 RR 14 POX 100% ON 3L NASAL CANNULA. TITRATED DOWN THE NASAL CANNULA TO 2L.
[2019-09-21] VITALS (53 sets, daily range): BP systolic 76–159; BP diastolic 44–121
[2019-09-21] MEDS: D5W/SOD CHLO 0.9% 1,000 ML IV SCH (02:12)
[2019-09-21 03:57] LABS: Basophils # (auto) 0 uL; Basophils % (auto) 0.1 % (0.0-2.0); Eosinophils # (auto) 0.1 uL; Eosinophils % (auto) 0.4 % (0.0-7.0); Hematocrit 31.4 % (36.0-46.0); Hemoglobin 10.9 g/dL (12.2-16.2); Lymphocytes # (auto) 0.9 uL; Lymphocytes % (auto) 6.6 % (10.0-50.0); Mean Corpuscular Hemoglobin 31.6 pg (28.0-32.0); Mean Corpuscular Hgb Conc. 34.6 g/dL (32.0-36.0); Mean Corpuscular Volume 91.5 fL (80.0-100.0); Monocytes # (auto) 0.7 uL; Monocytes % (auto) 4.6 % (0.0-12.0); Neutrophils # (auto) 12.7 uL; Neutrophils % (auto) 88.3 % (37.0-80.0); Nucleated Red Blood Cells % 0.1 %; Platelet Count (auto) 301 10^3/uL (140-450); Red Blood Cells 3.43 10^6/uL (4.0-5.20); Red Cell Distribution Width 15.1 % (11.8-14.3); White Blood Cell 14.3 10^3/uL (4.4-10.8)
[2019-09-21 04:16] LABS: Potassium 3.4 mmol/L (3.5-5.1)
[2019-09-21 04:27] LABS: Albumin 1.1 g/dL (3.4-5.0); BUN/Creatinine Ratio 20.5; Bilirubin, Total 0.5 mg/dL (0.2-1.0); Calcium 7.4 mg/dL (8.5-10.1); Total Protein 5.4 g/dL (6.4-8.2)
--- NOTE | 2019-09-21 05:00 | NUR ---
Patient bathe/linen change Patient given partial bath. Skin integrity assessed for any changes. Linens and gown changed. Patient repositioned for comfort.
[2019-09-21] MEDS: CLINDAMYCIN 600MG IV 50 ML IV SCH (05:31)
--- NOTE | 2019-09-21 06:00 | NUR ---
Respiratory note: PT ASSESSED FOR PRN. PT IS AWAKE, ALERT AND RESPONSIVE. PT IS IN NO RESPIRATORY DISTRESS. PT IS ON 2.0 LPM NC SP02 97%. BS ARE DIMINISHED. NO TREATMENT IS INDICATED AT THIS TIME. INFORMED PT IF BECOMES SOB TELL RN AND RT WILL BE PAGED.
--- NOTE | 2019-09-21 07:00 | NUR ---
Voided thru the bedpan about 5x, approximately 1100 ml with some spillage.
--- NOTE | 2019-09-21 07:30 | NUR ---
REPORT REPORT RECEIVED FROM NIGHT RNGEOVANNY. ASSISTED PT TO USE BEDPAN AND SHE VOIDED 275 CLEAR YELLOW URINE. RIC CARE GIVEN AND TURNED FOR COMFORT.
--- NOTE | 2019-09-21 08:25 | NUR ---
ASSESSMENT PT AWAKE AND A/O TO NAME, AND PLACE. ABLE TO MOVE ALL EXTREMITIES BUT VERY WEAK. FOLLOWS SIMPLE COMMANDS. LUNGS CLEAR THROUGHOUT. O2 AT 2 L/M VIA NC WITH O2 SAT OF 100%. TELE SR 76. PALPABLE PULSES TO ALL EXTREMITIES. +2 PITTING EDEMA NOTED TO BOTH ANKLES. ABD SOFT WITH HYPOACTIVE BOWEL SOUNDS. HAS NOT BEEN EATING "NOTHING TASTES GOOD. PT USING BEDPAN TO VOID AND OCCASIONALLY INCONTINENT OVER THE TIER LIFT OPERATOR. VOIDED 275 CLEAR YELLOW URINE VIA BEDPAN AT 0730. SACRUM WITH 2 PINK BLANCHABLE ZALDIVAR. COVERED WITH AN OPTIFOAM DRESSING. RIGHT ELBOW AND RIGHT UPPER CHEST WITH BRUISING NOTED. WAS TURNED TO HER RIGHT AT 0730. RAILS UP X4 AND BED IN LOW POSITION FOR PT SAFETY. CONTINUE TO MONITOR.
[2019-09-21] MEDS: Ensure HIGH Protein Chocolate 8oz Bottle PO SCH ×2 (08:30→12:00)
[2019-09-21] MEDS: LEVOFLOXACIN 250MG 50 ML IV SCH (09:18)
[2019-09-21] MEDS ORDERED: POTASSIUM CHL 20MEQ/100ML 100 ML IV ONE (10:30)
[2019-09-21] MEDS: PANTOPRAZOLE 40 MG TAB PO SCH (11:04)
--- NOTE | 2019-09-21 11:12 | NUR ---
PICC LINE PICC LINE RN AT THE BEDSIDE. CONSENT ALREADY SIGNED BY PT'S DAUGHTER AND MD.
--- NOTE | 2019-09-21 11:53 | NUR ---
PICC line placement Patient/Patient significant other educated on need for PICC line placement. All risks and benefits explained and all questions and concerns addressed prior to procedure. Noted past medical history and allergies with no contraindications. INR and Plt counts within acceptable range. 5 fr PICC line inserted via right basilic vein using [employer] US and Tip Location System. Sterile technique with maximum barrier precautions utilized. Blood return obtained from each of the 3 lumens and each flushed easily with NS using proper technique. PICC secured with Stat-lock; biodisc and occlusive dressing applied. Stat portable chest x-ray obtained for PICC tip placement. *Baseline Arm Circumference 18 cm. Internal length 35 cm. External length 0. PICC lot #[id number]
[2019-09-21] MEDS ORDERED: VANCOMYCIN 750mg/250ml 250 ML IV SCH (12:00)
[2019-09-21] MEDS ORDERED: LIDOCAINE 1% (LOCAL ANESTH.) PF 5ml SDV ID ONE (12:00)
--- NOTE | 2019-09-21 12:00 | NUR ---
HELD NEWLY ORDERED ROCEPHIN PT WITH PCN ALLERGY AND PHARMACY REPORTS POSSIBLE REACTION. WILL CHECK WITH .
[2019-09-21] MEDS ORDERED: cefTRIAXone 1GM/50ML D5W 50 ML IV ONE (12:15)
--- NOTE | 2019-09-21 12:25 | NUR ---
Okay to use PICC line Xray completed and reviewed. OK to use PICC line. Lilli SAINI notified.
--- NOTE | 2019-09-21 13:00 | NUR ---
PICCLINE CLEARED FOR USE AND ALL IV FLUIDS MOVED TO THE PICC LINE.
--- NOTE | 2019-09-21 13:25 | NUR ---
THORACENTESIS DR SELF AT THE BEDSIDE FOR THE THORACENTESIS. HE SPOKE WITH THE PT'S DAUGHTER AND SHE THEN PROVIDED CONSENT. SHE LEFT THE ROOM TO GO TO THE LOBBY . PT ASSISTED TO SIT ON THE SIDE OF THE BED AND RESTED AGAINST AN OVERBED TABLE WITH A PILLOW ON IT. I STOOD IN FRONT OF HER AND SUPPORTED HER AND MONITORED HER VS.
[2019-09-21] MEDS ORDERED: HYDROCORTISONE SOD SUCC 100 MG/2ML INJ VIAL IV SCH (14:00)
[2019-09-21] MEDS ORDERED: EPINEPHrine HCL 250 ML IV ONE (14:04)
--- NOTE | 2019-09-21 14:04 | NUR ---
During thoracentesis, pt stated "I'm tired and I want to lay down." Pt then became limp and had a blank stare on her face . I lowered her back onto the bed and called for assistance. Debra Milner called. Dr Toribio still at the bedside and running the code.
[2019-09-21] MEDS ORDERED: SODIUM BICARBONATE 8.4% INJ 50ML SYRINGE ONE (14:12)
--- NOTE | 2019-09-21 14:13 | NUR ---
jade andrews called and pt pronounced by Dr Toribio at 1413. He went to the lobby and informed the pt's daughters, Pratima and Sammie.
--- NOTE | 2019-09-21 14:35 | NUR ---
FAMILY PT'S DAUGHTERS BROUGHT INTO ROOM.
--- NOTE | 2019-09-21 15:17 | NUR ---
[facility]. CALLED [facility] TO REPORT THE PT'S . THEY ARE RELEASING THE BODY. CASE # [id number] .
--- NOTE | 2019-09-21 15:29 | NUR ---
CASE OPERATOR CALLED CASE OPERATOR AND LEFT INFORMATION REGARDING THIS PT AND REQUESTING TO SPEAK WITH THE CASE OPERATOR. PROVIDED REQUESTED INFORMATION. AWAITING A RETURN CALL.
--- NOTE | 2019-09-21 17:54 | NUR ---
[employer] CALLED [employer]S OFFICE TO INQUIRE . SHE STATED THAT THEY ARE EXTREMELY BUSY AND THE DISPATCHER [employer] WILL GET BACK TO ME SOON POSSIBLE.
--- NOTE | 2019-09-21 20:21 | NUR ---
CANCER REGISTRY MANAGER RELEASE PATIENT AT THIS TIME. CASE #[id number] CANCER REGISTRY MANAGER GEORGE MALHOTRA
--- NOTE | 2019-09-21 20:27 | NUR ---
[facility] SPOKE WITH MITESH AT [phone]. NOTIFIED OF FAMILY WISH FOR MEDICAL ASSOCIATE.
[2019-09-21] MEDS ORDERED: SODIUM BICARBONATE 8.4% INJ 50ML SYRINGE IV ONE (21:15)
[2019-09-21] MEDS ORDERED: EPINEPHrine HCL 1 MG/10 ML SYRG IV ONE (21:15)
--- NOTE | 2019-09-21 21:43 | NUR ---
Pt taken by union representative from [employer] at this time.
[2019-09-21] MEDS ORDERED: APIXABAN 2.5 MG TAB PO SCH (22:00)
[2019-09-21] MEDS ORDERED: SODIUM CHLOR 0.9% PF (SALINE LOCK) 10ML VIAL/SYR IV SCH (22:00)
[2019-09-22] MEDS ORDERED: cefTRIAXone 1GM/50ML D5W 50 ML IV SCH (09:00)
== END 2019-09-21 14:13 | disposition expired | DRG 871 ==
LOC: ER 16:57 → TELE 16:58 → DOU IN ICU 09-17 03:34 → ICU WEST 09-19 06:10
PROVIDERS: ADMIT Nurse Practitioner; ATTEND Internal Medicine
PROC: 0WH933Z Insertion of Infusion Device into Right Pleural Cavity, Percutaneous Approach (ICD-10-PCS; 2019-09-17)
PROC: 0W993ZZ Drainage of Right Pleural Cavity, Percutaneous Approach (ICD-10-PCS; 2019-09-17)
PROC: 0W993ZZ Drainage of Right Pleural Cavity, Percutaneous Approach (ICD-10-PCS; principal; 2019-09-19)
PROC: 02HV33Z Insertion of Infusion Device into Superior Vena Cava, Percutaneous Approach (ICD-10-PCS; 2019-09-21)
PROC: 0BH17EZ Insertion of Endotracheal Airway into Trachea, Via Natural or Artificial Opening (ICD-10-PCS; 2019-09-21)
PROC: 0W993ZZ Drainage of Right Pleural Cavity, Percutaneous Approach (ICD-10-PCS; 2019-09-21)
DX: A41.9 Sepsis, unspecified organism (principal); E43 Unspecified severe protein-calorie malnutrition; N17.0 Acute kidney failure with tubular necrosis; R65.21 Severe sepsis with septic shock; J96.21 Acute and chronic respiratory failure with hypoxia; D68.9 Coagulation defect, unspecified; N39.0 Urinary tract infection, site not specified; J94.8 Other specified pleural conditions; N13.6 Pyonephrosis; R57.1 Hypovolemic shock; I48.91 Unspecified atrial fibrillation; I70.0 Atherosclerosis of aorta; B96.20 Unspecified Escherichia coli [E. coli] as the cause of diseases classified elsewhere; F32.9 Major depressive disorder, single episode, unspecified; I48.0 Paroxysmal atrial fibrillation; J43.9 Emphysema, unspecified; I10 Essential (primary) hypertension; K21.9 Gastro-esophageal reflux disease without esophagitis; Z88.0 Allergy status to penicillin; Z79.899 Other long term (current) drug therapy; Z90.710 Acquired absence of both cervix and uterus
CPT/HCPCS: 32555; 36415; 36569; 36600; 71045; 71250; 71260; 74176; 74177; 76705; 76775; 78582; 80048; 80053; 80076; 80162; 80202; 81001; 82553; 82805; 82962; 83605; 83735; 83986; 84484; 85007; 85025; 85027; 85379; 85384; 85610; 85730; 87040; 87070; 87081; 87086; 87088; 87186; 87205; 89051; 92610; 93005; 93306; 93970; 99291; C1724; G0378; J0171; J0696; J1956; J2405; J3480; J3490; J7042; J7060